=== PATIENT | male | born 1980 | race American Indian/Alaskan Native ===

== ENCOUNTER 2019-07-10 12:05 | Inpatient (IN) | payer OTHER ==
--- NOTE | 2019-07-10 12:36 | Emergency Department Report ---
Blank Doc - Documentation Documentation: 39-year-old male that was sent by upholstery mechanic for new onset of CHF w/ EF 10% and SOB, chest pain and bilateral leg swellings. This initial assessment/diagnostic orders/clinical plan/treatment(s) is/are subject to change based on patient's health status, clinical progression and re- assessment by fellow clinical providers in the ED. Further treatment and workup at subsequent clinical providers discretion. Patient/guardians urged not to elope from the ED as their condition may be serious if not clinically assessed and managed. Initial orders include: 1- Patient sent to MAIN ED for further evaluation and treatment 2- labs 3- EKG 4- CXR
--- NOTE | 2019-07-10 13:20 | XRay Report ---
CHEST 2 VIEWS INDICATION / CLINICAL INFORMATION: Chest pain for 3 weeks. COMPARISON: None available. FINDINGS: SUPPORT DEVICES: None. HEART / MEDIASTINUM: Moderate cardiomegaly. LUNGS / PLEURA: No significant pulmonary or pleural abnormality. No pneumothorax. ADDITIONAL FINDINGS: No significant additional findings. IMPRESSION: Moderate cardiomegaly. No other acute abnormality of the chest. Signer Name: Turner Dietrich MD Signed: 07/10/2019 1:15 PM Workstation Name: [id number]
[2019-07-10 13:52] LABS: Basophils # (Auto) 0.1 K/mm3 (0.0-0.1); Basophils % (Auto) 0.9 % (0.0-1.8); Eosinophils % (Auto) 0.1 % (0.0-4.3); Hematocrit 45.2 % (35.5-45.6); Hemoglobin 15.9 gm/dl (11.8-15.2); Lymphocytes # (Auto) 0.8 K/mm3 (1.2-5.4); Lymphocytes % (Auto) 11.2 % (13.4-35.0); Mean Corpuscular HGB Conc 35 % (32-34); Mean Corpuscular Volume 99 fl (84-94); Monocytes # (Auto) 0.8 K/mm3 (0.0-0.8); Monocytes % (Auto) 11.2 % (0.0-7.3); Platelet Count 219 K/mm3 (140-440); Red Blood Count 4.57 M/mm3 (3.65-5.03); Red Cell Distribution Width 13.9 % (13.2-15.2)
[2019-07-10 14:03] LABS: INR 1.37 (0.87-1.13)
[2019-07-10 14:04] LABS: Partial Thromboplastin Time 34.2 Sec. (24.2-36.6)
[2019-07-10 14:20] LABS: Alanine Aminotransferase 34 units/L (7-56); Albumin 3.2 g/dL (3.9-5); BUN/Creatinine Ratio 12; Blood Urea Nitrogen 17 mg/dL (9-20); Calcium 8.4 mg/dL (8.4-10.2); Hemolysis Index 5
--- NOTE | 2019-07-10 17:08 | Emergency Department Report ---
HPI - General Chief Complaint: Weakness Time Seen by Provider: 07/10/19 12:34 - HPI HPI: 39-year-old -[place] male presents to the emergency Department from the office of [facility] cardiology with complaint of new onset heart failure. The patient has been having a 1 week history of progressively worsening lower extremity swelling and exertional dyspnea. He went to see the primary care physician of his father, Dr. Painting, and was placed on some Lasix for a few days. He went into [facility] today and saw Dr. Pereyra. They did an echocardiogram that showed severe dilated biventricular dysfunction with an ejection fraction less than 10%. There is an office note here from Dr. Pereyra recommending admission for IV diuretics and inotropes. The patient denies any previous medical history but also does not follow up with a primary care physician regularly. He is a tobacco smoker but denies any illicit drug use. ED Past Medical Hx - Past Medical History Previous Medical History?: No - Surgical History Past Surgical History?: No - Social History Smoking Status: Current Every Day Smoker Substance Use Type: Alcohol ED Review of Systems ROS: Stated complaint: REF/BY [facility] Other details as noted in HPI Comment: All other systems reviewed and negative Constitutional: denies: chills, fever Eyes: denies: eye pain, vision change ENT: denies: ear pain, throat pain Respiratory: shortness of breath, SOB with exertion Cardiovascular: edema. denies: chest pain Gastrointestinal: denies: abdominal pain, vomiting Genitourinary: denies: dysuria, discharge Musculoskeletal: denies: back pain, arthralgia Skin: denies: rash, lesions Neurological: denies: headache, weakness Physical Exam - Physical Exam Vital Signs: Vital Signs 07/10/19 07/10/19 12:10 15:43 Temperature 97.9 F Pulse Rate 129 H 125 H Respiratory 16 18 Rate Blood Pressure 123/95 Blood Pressure 116/79 [Right] O2 Sat by Pulse 99 99 Oximetry Physical Exam: GENERAL: The patient is well-developed well-nourished. HEENT: Normocephalic. Atraumatic. Patient has moist mucous membranes. EYES: Extraocular motions are intact. NECK: Supple. Trachea is midline. CHEST/LUNGS: Clear to auscultation. There is no respiratory distress noted. HEART/CARDIOVASCULAR: Regular. There is mild tachycardia. There is no murmur. ABDOMEN: Abdomen is soft, nontender. Patient has normal bowel sounds. There is no abdominal distention. SKIN: 2-3+ pitting edema to the bilateral lower extremities. NEURO: The patient is awake, alert, and oriented. The patient is cooperative. The patient has no focal neurologic deficits. Normal speech. MUSCULOSKELETAL: There is no tenderness or deformity. There is no evidence of acute injury. ED Course Vital Signs 07/10/19 07/10/19 12:10 15:43 Temperature 97.9 F Pulse Rate 129 H 125 H Respiratory 16 18 Rate Blood Pressure 123/95 Blood Pressure 116/79 [Right] O2 Sat by Pulse 99 99 Oximetry ED Medical Decision Making - Lab Data Result diagrams: 07/10/19 13:05 07/10/19 13:05 - EKG Data -: EKG Interpreted by Me EKG shows normal: sinus rhythm, axis (left axis deviation), intervals (prolonged QT and QTC), QRS complexes (Q waves to the inferior and anterior leads), ST-T waves (there are some mild ST depressions to the lateral leads V5 and V6) Rate: tachycardia (126 bpm) - EKG Data When compared to previous EKG there are: previous EKG unavailable Interpretation: other (sinus tachycardia at 126 bpm, left axis deviation, Q waves to the anterior and inferior leads, mild ST depressions to the lateral leads V5 and V6, QT and QTC prolongation) - Radiology Data Radiology results: report reviewed, image reviewed interpreted by me: Chest x-ray does not show any pleural effusions, pneumonia, pneumothorax, focal consolidation, or any other acute process. Ventilation perfusion scan is low probability for pulmonary embolism - Medical Decision Making This patient was sent in by the chemistry technologist for new onset and decompensated heart failure with an ejection fraction less than 10% found on echocardiogram in the office. He has 2-3+ pitting edema bilateral lower extremities and some exertional dyspnea. Chest x-ray just shows some cardiomegaly. BNP greater than 2300. Negative troponins 2 this far. Elevated d-dimer so VQ scan was done that came back low probability for a pulmonary embolism. Given Lasix to start diuresis and patient will be admitted to the hospital. He was accepted by the hospitalist, Dr. Jennings. - Differential Diagnosis CHF, venous stasis, PE, pneumonia Critical Care Time: No Critical care attestation.: If time is entered above; I have spent that time in minutes in the direct care of this critically ill patient, excluding procedure time. ED Disposition Clinical Impression: New onset of congestive heart failure CHF (congestive heart failure) Qualifiers: Heart failure type: systolic Heart failure chronicity: acute Qualified Code(s): I50.21 - Acute systolic (congestive) heart failure Disposition: OP ADMIT IP TO THIS HOSP Is pt being admited?: Yes Condition: Fair Time of Disposition: 21:30
[2019-07-10] MEDS ORDERED: FUROSEMIDE 40 MG/4 ML INJ IV ONE (17:26)
[2019-07-10 19:18] LABS: Bilirubin,Urine NEG (Negative); Blood,Urine NEG (Negative); Color,Urine Straw (Yellow); Protein,Urine <15 mg/dL mg/dL (Negative); RBC,Urine < 1.0 /HPF (0.0-6.0)
--- NOTE | 2019-07-10 19:35 | History and Physical Report ---
History of Present Illness Chief complaint: My legs are swollen and it is hard for me to breathe History of present illness: 39-year-old male with nicotine dependence, alcohol dependence presents to ED for evaluation. Patient states that he has experienced lower extremity edema and shortness of breath over the past 1 week with progressively worsening symptoms over the same timeframe. Patient acknowledges orthopnea/PND, dyspnea on exertion, dyspnea at rest, decreased exercise tolerance, shortness of breath and subjective weight gain. Patient was seen and evaluated by his primary care physician and treated with diuretic therapy without significant improvement in symptoms. Patient was also seen by his outreach rep Dr. Pereyra on today and underwent an echocardiogram which showed an ejection fraction of less than 10%. Patient was instructed to seek medical care. Patient was transported to [facility] via private vehicle for further care and evaluation. Patient seen and evaluated in the emergency department. Lab and imaging studies reviewed. Patient found to have clinical symptoms as well as chest x-ray findings consistent with CHF decompensation. Patient admitted to telemetry for medical stabilization due to increased risk of cardiac decompensation. Cardiology team consulted in ED. Patient initiated on CHF decompensation protocol and treated with supplemental oxygen nebulizer therapy as well as diuretic therapy with mild improvement in symptoms. VQ scan is pending at time of admission. No prior admission for review. No medication listed at time of admission for reconciliation. Patient denies fever, chills, chest pain, palpitations, productive cough, bright red blood per rectum, skin rash, recent ill contacts, prolonged travel/immobility, unilateral leg swelling, calf pain, individual/family history of DVT/PE/bleeding/blood clotting disorders. Past History Past Medical History: other (See HPI) Past Surgical History: No surgical history, Other (Reviewed) Social history: smoking, alcohol abuse Family history: diabetes, hypertension Medications and Allergies Allergies Allergy/AdvReac Type Severity Reaction Status Date / Time No Known Allergies Allergy Unverified 07/10/19 12:10 Review of Systems Constitutional: weight gain, no weight loss, no fever Ears, nose, mouth and throat: no ear pain, no ear discharge, no tinnitis, no nose pain Cardiovascular: orthopnea, edema, shortness of breath, dyspnea on exertion, paroxysmal nocturnal dyspnea, leg edema, decreased exercise tolerance, no chest pain, no lightheadedness Respiratory: no cough, no cough with sputum, no excessive sputum Gastrointestinal: no nausea, no vomiting, no diarrhea, no constipation Genitourinary Male: no hematuria, no flank pain, no discharge, no urinary frequency, no urinary hesitancy Rectal: no pain, no incontinence, no bleeding Musculoskeletal: no neck stiffness, no neck pain, no shooting arm pain, no low back pain, no shooting leg pain Integumentary: no rash, no pruritis, no sores Neurological: no transient paralysis, no paralysis, no weakness, no parathesias, no numbness, no tingling Psychiatric: no anxiety, no memory loss, no sleep disturbances, no insomnia, no change in appetite, no suicidal ideation, no hallucinations Endocrine: no heat intolerance, no polyphagia, no polydipsia, no nocturia, no flushing Hematologic/Lymphatic: no easy bruising, no easy bleeding, no lymphedema Allergic/Immunologic: no allergic rhinitis, no wheezing, no anaphylaxis Exam - Constitutional Vitals: Temp Pulse Resp BP Pulse Ox 97.9 F 114 H 21 111/83 95 07/10/19 12:10 07/10/19 18:00 07/10/19 18:00 07/10/19 18:00 07/10/19 18:00 General appearance: Present: mild distress - EENT Eyes: Present: PERRL ENT: hearing intact, clear oral mucosa - Neck Neck: Present: supple, normal ROM, masses or JVD - Respiratory Respiratory effort: normal Respiratory: bilateral: diminished, rales - Cardiovascular Heart Sounds: Present: S1 & S2. Absent: rub, click - Extremities Extremities: pulses symmetrical Extremity abnormal: edema Peripheral Pulses: within normal limits - Abdominal General gastrointestinal: Present: soft, non-tender, non-distended, normal bowel sounds Male genitourinary: Present: normal - Integumentary Integumentary: Present: clear, warm, dry - Musculoskeletal Musculoskeletal: generalized weakness - Psychiatric Psychiatric: appropriate mood/affect, intact judgment & insight - Neurologic Neurologic: CNII-XII intact, moves all extremities Results - Labs CBC & Chem 7: 07/10/19 13:05 07/10/19 13:05 Labs: Abnormal lab results 07/10/19 07/10/19 07/10/19 Range/Units 13:05 13:05 13:05 Hgb 15.9 H (11.8-15.2) gm/dl MCV 99 H (84-94) fl MCH 35 H (28-32) pg MCHC 35 H (32-34) % Lymph % (Auto) 11.2 L (13.4-35.0) % Bourbon % (Auto) 11.2 H (0.0-7.3) % Lymph # 0.8 L (1.2-5.4) K/mm3 Seg Neutrophils % 76.6 H (40.0-70.0) % PT 17.1 H (12.2-14.9) Sec. INR 1.37 H (0.87-1.13) D-Dimer (0-234) ng/mlDDU Sodium 133 L (137-145) mmol/L Chloride 90.7 L (98-107) mmol/L Glucose 107 H (75-100) mg/dL Total Bilirubin 2.90 H (0.1-1.2) mg/dL AST 86 H (5-40) units/L NT-Pro-B Natriuret Pep 2312 H (0-450) pg/mL Total Protein 6.1 L (6.3-8.2) g/dL Albumin 3.2 L (3.9-5) g/dL Urine WBC (Auto) (0.0-6.0) /HPF 07/10/19 07/10/19 Range/Units 16:45 18:48 Hgb (11.8-15.2) gm/dl MCV (84-94) fl MCH (28-32) pg MCHC (32-34) % Lymph % (Auto) (13.4-35.0) % Bour[place] % (Auto) (0.0-7.3) % Lymph # (1.2-5.4) K/mm3 Seg Neutrophils % (40.0-70.0) % PT (12.2-14.9) Sec. INR (0.87-1.13) D-Dimer 1283.51 H (0-234) ng/mlDDU Sodium (137-145) mmol/L Chloride (98-107) mmol/L Glucose (75-100) mg/dL Total Bilirubin (0.1-1.2) mg/dL AST (5-40) units/L NT-Pro-B Natriuret Pep (0-450) pg/mL Total Protein (6.3-8.2) g/dL Albumin (3.9-5) g/dL Urine WBC (Auto) 8.0 H (0.0-6.0) /HPF Assessment and Plan - Patient Problems (1) CHF (congestive heart failure) Current Visit: Yes Status: Acute Qualifiers: Heart failure type: systolic Heart failure chronicity: acute Qualified Code(s): I50.21 - Acute systolic (congestive) heart failure Plan to address problem: CHF protocol: Admit to telemetry, strict I's/O, daily weight, monitor urine output every shift, IV Lasix for diuresis, supplemental oxygen, nebulizer therapy, chest x-ray, BNP, thyroid panel, magnesium level, afterload reduction, cardiology consulted in ED. (2) Nicotine dependence Current Visit: Yes Status: Acute Qualifiers: Nicotine product type: cigarettes Substance use status: in withdrawal Qualified Code(s): F17.213 - Nicotine dependence, cigarettes, with withdrawal Plan to address problem: Smoking cessation counseling, supportive care, +15 minutes. (3) Alcohol dependence Current Visit: Yes Status: Acute Qualifiers: Complication of substance-induced condition: uncomplicated Plan to address problem: Thiamine, folic acid, multivitamin p.o. daily, supportive care, CIWA protocol. (4) Hyponatremia syndrome Current Visit: Yes Status: Acute Plan to address problem: Supportive care, monitor urine output every shift, BMP, repeat BMP in a.m. (5) DVT prophylaxis Current Visit: Yes Status: Acute Plan to address problem: SCD to bilateral lower extremities while in bed, prophylactic heparin.
[2019-07-10] MEDS ORDERED: ONDANSETRON 4 MG/2 ML INJ IV PRN (19:36)
[2019-07-10] MEDS ORDERED: ALBUTEROL 2.5 MG/3 ML NEBU IH PRN (19:36)
[2019-07-10] MEDS ORDERED: THIAMINE 100 MG TAB PO ONE (19:53)
[2019-07-10] MEDS ORDERED: LORazepam 2 MG/ML VIAL IV PRN (19:53)
[2019-07-10] MEDS ORDERED: MULTIVITAMINS ,THERAPEUTIC TAB PO ONE ×2 (19:53→20:26)
--- NOTE | 2019-07-10 19:54 | Nuclear Medicine Report ---
NM lung scan perf/vent INDICATION / CLINICAL INFORMATION: SOB, elevated dimer. TRACER: Xenon 133 gas 12.1 mCi inhalation and technetium 99m MAA 5.1 mCi IV injection. COMPARISON: Chest x-ray earlier the same day. FINDINGS: Nuclear medicine, ventilation and perfusion lung imaging were performed. Both are relatively homogene ous. Negative for suspicious ventilation or perfusion defect. IMPRESSION: Low probability for pulmonary embolus. Signer Name: Sid Smith MD Signed: 07/10/2019 7:49 PM Workstation Name: [id number]
[2019-07-10 20:18] LABS: Free T4 (Free Thyroxine) 1.36 ng/dL (0.76-1.46)
[2019-07-10] MEDS ORDERED: FOLIC ACID 1 MG TAB ONE (20:26)
[2019-07-10] MEDS: FOLIC ACID 1 MG TAB PO SCH (20:29)
[2019-07-10] MEDS: HEPARIN 5,000 UNIT/1 ML VIAL SUB-Q SCH (23:21)
[2019-07-11] MEDS: FUROSEMIDE 40 MG/4 ML INJ IV SCH ×2 (06:09→18:24)
[2019-07-11 06:45] LABS: BUN/Creatinine Ratio 19; Blood Urea Nitrogen 21 mg/dL (9-20); Calcium 8.2 mg/dL (8.4-10.2); Hemolysis Index 10
--- NOTE | 2019-07-11 09:45 | Consultation ---
History of Present Illness Consult date: 07/11/19 Consult reason: congestive heart failure History of present illness: This is a 39-year old male who was referred to our office with exertional sh ortness of breath and lower extremity edema ongoing for several weeks. Patient has a history of alcohol dependence. There is no prior cardiac history. Further evaluation with an echocardiogram showed severe TR and at least moderatae MR and severe dilated cardiomyopathy with and ejection fraction of 10%. The duration of this cardiomyopathy is uncertain. Patient was referred to the emergency departm ent for admission of CHF exacerbation. Past History Past Medical History: other (See HPI) Past Surgical History: No surgical history, Other (Reviewed) Social history: smoking, alcohol abuse Family history: diabetes, hypertension Medications and Allergies Allergies Allergy/AdvReac Type Severity Reaction Status Date / Time No Known Allergies Allergy Unverified 07/10/19 12:10 Active Meds: Active Medications Acetaminophen (Tylenol) 650 mg PO Q4H PRN PRN Reason: Pain MILD(1-3)/Fever >100.5/FLANNERY Albuterol (Proventil) 2.5 mg IH Q4HRT PRN PRN Reason: Shortness Of Breath Folic Acid (Folvite) 1 mg PO QDAY [facility] Last Admin: 07/10/19 20:29 Dose: 1 mg Documented by: Furosemide (Lasix) 40 mg IV BID@0600,1800 [facility] Last Admin: 07/11/19 06:09 Dose: 40 mg Documented by: Heparin Sodium (Porcine) (Heparin) 5,000 unit SUB-Q Q12HR [facility] Last Admin: 07/10/19 23:21 Dose: 5,000 unit Documented by: Lorazepam (Ativan) 2 mg IV Q1HR PRN PRN Reason: CIWA-Ar 8-15 Ondansetron HCl (Zofran) 4 mg IV Q8H PRN PRN Reason: Nausea And Vomiting Sodium Chloride (Sodium Chloride Flush Syringe 10 Ml) 10 ml IV BID [facility] Last Admin: 07/10/19 23:21 Dose: 10 ml Documented by: Sodium Chloride (Sodium Chloride Flush Syringe 10 Ml) 10 ml IV PRN PRN PRN Reason: LINE FLUSH Physical Examination Vital Signs Temp Pulse Resp BP Pulse Ox 97.9 F 129 H 16 123/95 99 07/10/19 12:10 07/10/19 12:10 07/10/19 12:10 07/10/19 12:10 07/10/19 12:10 General appearance: no acute distress HEENT: Positive: PERRL Neck: Positive: trachea midline Cardiac: Positive: Tachycardia Lungs: Positive: Decreased Breath Sounds Neuro: Positive: Grossly Intact Extremities: Present: edema Results 07/10/19 13:05 07/11/19 05:52 Cardiac Enzymes 07/10/19 Range/Units 13:05 AST 86 H (5-40) units/L Coagulation 07/10/19 Range/Units 13:05 PT 17.1 H (12.2-14.9) Sec. INR 1.37 H (0.87-1.13) APTT 34.2 (24.2-36.6) Sec. CBC 07/10/19 Range/Units 13:05 WBC 7.3 (4.5-11.0) K/mm3 RBC 4.57 (3.65-5.03) M/mm3 Hgb 15.9 H (11.8-15.2) gm/dl Hct 45.2 (35.5-45.6) % Plt Count 219 (140-440) K/mm3 Lymph # 0.8 L (1.2-5.4) K/mm3 George # 0.8 (0.0-0.8) K/mm3 Eos # 0.0 (0.0-0.4) K/mm3 Baso # 0.1 (0.0-0.1) K/mm3 Comprehensive Metabolic Panel 07/10/19 07/11/19 Range/Units 13:05 05:52 Sodium 133 L 134 L (137-145) mmol/L Potassium 4.5 3.8 (3.6-5.0) mmol/L Chloride 90.7 L 92.8 L (98-107) mmol/L Carbon Dioxide 22 26 (22-30) mmol/L BUN 17 21 H (9-20) mg/dL Creatinine 1.4 1.1 (0.8-1.5) mg/dL Glucose 107 H 103 H (75-100) mg/dL Calcium 8.4 8.2 L (8.4-10.2) mg/dL AST 86 H (5-40) units/L ALT 34 (7-56) units/L Alkaline Phosphatase 92 (35-129) units/L Total Protein 6.1 L (6.3-8.2) g/dL Albumin 3.2 L (3.9-5) g/dL Assessment and Plan Acute systolic heart failure EF 10% by outpatient echocardiogram. low probability for PE via VQ scan. Alcohol dependence Recommendations: Daily weight. Strict I's & O's. Sodium and fluid restriction. Advised to refrain from alcohol. Continue intravenous diuretics. In addition, we will initiate a trial of intravenous milrinone for 48-72 hours.
[2019-07-11] MEDS: FOLIC ACID 1 MG TAB PO SCH (10:26)
[2019-07-11] MEDS: HEPARIN 5,000 UNIT/1 ML VIAL SUB-Q SCH ×2 (10:26→22:57)
[2019-07-11] MEDS ORDERED: carvediloL 6.25 MG TAB PO SCH (12:00)
[2019-07-11] MEDS: MILRINONE-D5W 20 MG/100 ML 20 MG/100 ML BAG IV SCH (15:20)
--- NOTE | 2019-07-11 16:41 | Progress Note ---
Assessment and Plan Assessment and plan: Patient is a 39-year-old man with a history of with nicotine dependence and alcohol alcohol who presented to [facility] ED with lower extremity edema and shortness of breath. Patient was seen at his manager icu Dr. Pereyra's office and underwent an echocardiogram which showed an ejection fraction of less than 10%. Patient was instructed to seek medical care. (1) CHF (congestive heart failure) Current Visit: Yes Status: Acute Qualifiers: Heart failure type: systolic Heart failure chronicity: acute Qualified Code(s): I50.21 - Acute systolic (congestive) heart failure Plan to address problem: CHF protocol: Admit to telemetry, strict I's/O, daily weight, monitor urine output every shift, IV Lasix for diuresis, supplemental oxygen, nebulizer therapy, chest x-ray, BNP, thyroid panel, magnesium level, afterload reduction, cardiology consulted in ED. (2) Nicotine dependence Current Visit: Yes Status: Acute Qualifiers: Nicotine product type: cigarettes Substance use status: in withdrawal Qualified Code(s): F17.213 - Nicotine dependence, cigarettes, with withdrawal Plan to address problem: Smoking cessation counseling, supportive care, +15 minutes. (3) Alcohol dependence Current Visit: Yes Status: Acute Qualifiers: Complication of substance-induced condition: uncomplicated Plan to address problem: Thiamine, folic acid, multivitamin p.o. daily, supportive care, CIWA protocol. (4) Hyponatremia syndrome Current Visit: Yes Status: Acute Plan to address problem: Supportive care, monitor urine output every shift, BMP, repeat BMP in a.m. (5) DVT prophylaxis Current Visit: Yes Status: Acute Plan to address problem: SCD to bilateral lower extremities while in bed, prophylactic heparin. Disposition: continue inpatient care, Cardiology to start Milrone drip. Expect patient to experience ETOH WD, History Interval history: Patient was seen and examined. Follow-up on current diagnosis of CHF. Overnight uneventful as no events directly reported to me. Patient denies any chest pain, shortness breath, nausea/vomiting or severe headaches. Imaging, nursing note, chart, labs and old chart reviewed. Discussed with patient. Hospitalist Physical - Physical exam Narrative exam: Gen: WDWN, NAD, Awake, Alert, Orientated x 3 HEENT: NCAT, EOMI, PERRL, OP Clear Neck: supple, no adenopathy, no thyromegaly, + JVD CVS/Heart: RRR, normal S1S2, pulses present bilaterally Chest/Lungs: diminished bs bilateral, Symmetrical chest expansion, good air entry bilaterally GI/Abdomen: soft, NTND, good bowel sounds, no guarding or rebound /Bladder: no suprapubic tenderness, no CVA or paraspinal tenderness Extermity/Skin: 3+ pitting bilateral leg edema MSK: FROM x 4 Neuro: CN 2-12 grossly intact, no new focal deficits Psych: calm - Constitutional Vitals: Temp Pulse Resp BP Pulse Ox 122.0 F H 106 H 20 102/61 97 07/11/19 15:52 07/11/19 15:52 07/11/19 15:52 07/11/19 15:52 07/11/19 15:52 General appearance: Present: no acute distress Results - Labs CBC & Chem 7: 07/10/19 13:05 07/11/19 05:52 Labs: Laboratory Last Values WBC 7.3 K/mm3 (4.5-11.0) 07/10/19 13:05 RBC 4.57 M/mm3 (3.65-5.03) 07/10/19 13:05 Hgb 15.9 gm/dl (11.8-15.2) H 07/10/19 13:05 Hct 45.2 % (35.5-45.6) 07/10/19 13:05 MCV 99 fl (84-94) H 07/10/19 13:05 MCH 35 pg (28-32) H 07/10/19 13:05 MCHC 35 % (32-34) H 07/10/19 13:05 RDW 13.9 % (13.2-15.2) 07/10/19 13:05 Plt Count 219 K/mm3 (140-440) 07/10/19 13:05 Lymph % (Auto) 11.2 % (13.4-35.0) L 07/10/19 13:05 [place] % (Auto) 11.2 % (0.0-7.3) H 07/10/19 13:05 Eos % (Auto) 0.1 % (0.0-4.3) 07/10/19 13:05 Baso % (Auto) 0.9 % (0.0-1.8) 07/10/19 13:05 Lymph # 0.8 K/mm3 (1.2-5.4) L 07/10/19 13:05 [place] # 0.8 K/mm3 (0.0-0.8) 07/10/19 13:05 Eos # 0.0 K/mm3 (0.0-0.4) 07/10/19 13:05 Baso # 0.1 K/mm3 (0.0-0.1) 07/10/19 13:05 Seg Neutrophils % 76.6 % (40.0-70.0) H 07/10/19 13:05 Seg Neutrophils # 5.6 K/mm3 (1.8-7.7) 07/10/19 13:05 PT 17.1 Sec. (12.2-14.9) H 07/10/19 13:05 INR 1.37 (0.87-1.13) H 07/10/19 13:05 APTT 34.2 Sec. (24.2-36.6) 07/10/19 13:05 D-Dimer 1283.51 ng/mlDDU (0-234) H 07/10/19 16:45 Sodium 134 mmol/L (137-145) L 07/11/19 05:52 Potassium 3.8 mmol/L (3.6-5.0) 07/11/19 05:52 Chloride 92.8 mmol/L (98-107) L 07/11/19 05:52 Carbon Dioxide 26 mmol/L (22-30) 07/11/19 05:52 Anion Gap 19 mmol/L 07/11/19 05:52 BUN 21 mg/dL (9-20) H 07/11/19 05:52 Creatinine 1.1 mg/dL (0.8-1.5) 07/11/19 05:52 Estimated GFR > 60 ml/min 07/11/19 05:52 BUN/Creatinine Ratio 19 % 07/11/19 05:52 Glucose 103 mg/dL (75-100) H 07/11/19 05:52 Calcium 8.2 mg/dL (8.4-10.2) L 07/11/19 05:52 Magnesium 1.60 mg/dL (1.7-2.3) L 07/10/19 15:52 Total Bilirubin 2.90 mg/dL (0.1-1.2) H 07/10/19 13:05 AST 86 units/L (5-40) H 07/10/19 13:05 ALT 34 units/L (7-56) 07/10/19 13:05 Alkaline Phosphatase 92 units/L (35-129) 07/10/19 13:05 Troponin T < 0.010 ng/mL (0.00-0.029) 07/10/19 15:52 NT-Pro-B Natriuret Pep 2312 pg/mL (0-450) H 07/10/19 13:05 Total Protein 6.1 g/dL (6.3-8.2) L 07/10/19 13:05 Albumin 3.2 g/dL (3.9-5) L 07/10/19 13:05 Albumin/Globulin Ratio 1.1 % 07/10/19 13:05 TSH 2.350 mlU/mL (0.270-4.200) 07/10/19 15:52 Free T4 1.36 ng/dL (0.76-1.46) 07/10/19 15:52 Urine Color Straw (Yellow) 07/10/19 18:48 Urine Turbidity Clear (Clear) 07/10/19 18:48 Urine pH 7.0 (5.0-7.0) 07/10/19 18:48 Ur Specific [place] 1.003 (1.003-1.030) 07/10/19 18:48 Urine Protein <15 mg/dl mg/dL (Negative) 07/10/19 18:48 Urine Glucose (UA) Neg mg/dL (Negative) 07/10/19 18:48 Urine Ketones Neg mg/dL (Negative) 07/10/19 18:48 Urine Blood Neg (Negative) 07/10/19 18:48 Urine Nitrite Neg (Negative) 07/10/19 18:48 Urine Bilirubin Neg (Negative) 07/10/19 18:48 Urine Urobilinogen 4.0 mg/dL (<2.0) 07/10/19 18:48 Ur Leukocyte Esterase Neg (Negative) 07/10/19 18:48 Urine WBC (Auto) 8.0 /HPF (0.0-6.0) H 07/10/19 18:48 Urine RBC (Auto) < 1.0 /HPF (0.0-6.0) 07/10/19 18:48 Active Medications - Current Medications Current Medications: Generic Name Dose Route Start Last Admin Trade Name Freq PRN Reason Stop Dose Admin Acetaminophen 650 mg 07/10/19 19:36 Tylenol PO Q4H PRN Pain MILD(1-3)/Fever >100.5/FLANNERY Albuterol 2.5 mg 07/10/19 19:36 Proventil IH Q4HRT PRN Shortness Of Breath Folic Acid 1 mg 07/10/19 19:53 07/11/19 10:26 Folvite PO 1 mg QDAY AAYUSH Administration Furosemide 40 mg 07/11/19 06:00 07/11/19 06:09 Lasix IV 40 mg BID@0600,1800 AAYUSH Administration Heparin Sodium (Porcine) 5,000 unit 07/10/19 22:00 07/11/19 10:26 Heparin SUB-Q 5,000 unit Q12HR AAYUSH Administration Milrinone Lactate/Dextrose 20 mg in 100 mls @ 6.255 mls/hr 07/11/19 14:00 07/11/19 15:20 Milrinone-D5w 20 Mg/100 Ml IV 07/14/19 13:59 0.25 mcg/kg/min TITR AAYUSH 6.255 mls/hr Administration 0.25 MCG/KG/MIN Lorazepam 2 mg 07/10/19 19:53 Ativan IV Q1HR PRN CIWA-Ar 8-15 Ondansetron HCl 4 mg 07/10/19 19:36 Zofran IV Q8H PRN Nausea And Vomiting Sodium Chloride 10 ml 07/10/19 22:00 07/10/19 23:21 Sodium Chloride Flush Syringe 10 Ml IV 10 ml BID AAYUSH Administration Sodium Chloride 10 ml 07/10/19 19:36 Sodium Chloride Flush Syringe 10 Ml IV PRN PRN LINE FLUSH Spironolactone 25 mg 07/12/19 10:00 Aldactone PO QDAY AAYUSH
[2019-07-12] MEDS: MILRINONE-D5W 20 MG/100 ML 20 MG/100 ML BAG IV SCH ×2 (03:15→22:39)
[2019-07-12] MEDS: FUROSEMIDE 40 MG/4 ML INJ IV SCH ×3 (05:41→18:21)
[2019-07-12] MEDS ORDERED: SPIRONOLACTONE 25 MG TAB PO SCH (10:00)
[2019-07-12] MEDS ORDERED: LISINOPRIL 5 MG TAB PO SCH (10:00)
[2019-07-12] MEDS: FOLIC ACID 1 MG TAB PO SCH (10:13)
[2019-07-12] MEDS: HEPARIN 5,000 UNIT/1 ML VIAL SUB-Q SCH ×2 (10:13→22:40)
[2019-07-12] MEDS: SPIRONOLACTONE 25 MG TAB PO SCH (10:13)
--- NOTE | 2019-07-12 12:09 | Progress Note ---
Assessment and Plan Acute systolic heart failure EF 10% by outpatient echocardiogram. low probability for PE via VQ scan. Alcohol dependence Recommendations: Daily weight. Strict I's & O's. Sodium and fluid restriction. Advised to refrain from alcohol. Continue aggressive therapy with diuretics and IV milrinone. We will initiate beta blockers once heart failure is compensated. Lifevest placement before discharge. Subjective Date of service: 07/12/19 Interval history: Patient reports he is diuresing well. Still with mild shortness of breath on exertion. Objective Vital Signs Temp Pulse Resp BP BP Pulse Ox 07/12/19 07:48 97.3 F L 113 H 18 111/73 99 07/12/19 04:04 97.9 F 114 H 16 105/55 95 07/11/19 23:43 98.9 F 113 H 16 91/61 96 07/11/19 20:17 112 H 07/11/19 20:00 118 H 92 07/11/19 19:49 97.8 F 16 98/71 07/11/19 19:00 103 H 07/11/19 18:25 101 H 105/68 07/11/19 15:52 122.0 F H 106 H 20 102/61 97 07/11/19 13:29 97.5 F L 125 H 20 108/76 96 07/11/19 12:39 95 - Physical Examination General: No Apparent Distress HEENT: Positive: PERRL Neck: Positive: trachea midline Cardiac: Positive: Tachycardia Lungs: Positive: Decreased Breath Sounds Neuro: Positive: Grossly Intact Extremities: Present: edema
[2019-07-13] MEDS: FUROSEMIDE 40 MG/4 ML INJ IV SCH ×2 (07:13→18:22)
--- NOTE | 2019-07-13 08:37 | Progress Note ---
Assessment and Plan Assessment and plan: Patient is a 39-year-old man with a history of with nicotine dependence and alcohol alcohol who presented to [facility] ED with lower extremity edema and shortness of breath. Patient was seen at his aircraft life support fitter Dr. Pereyra's office and underwent an echocardiogram which showed an ejection fraction of less than 10%. Patient was instructed to seek medical care. (1) CHF (congestive heart failure) Current Visit: Yes Status: Acute Qualifiers: Heart failure type: systolic Heart failure chronicity: acute Qualified Code(s): I50.21 - Acute systolic (congestive) heart failure Plan to address problem: CHF protocol: Admit to telemetry, strict I's/O, daily weight, monitor urine output every shift, IV Lasix for diuresis, supplemental oxygen, nebulizer therapy, chest x-ray, BNP, thyroid panel, magnesium level, afterload reduction, cardiology consulted in ED. (2) Nicotine dependence Current Visit: Yes Status: Acute Qualifiers: Nicotine product type: cigarettes Substance use status: in withdrawal Qualified Code(s): F17.213 - Nicotine dependence, cigarettes, with withdrawal Plan to address problem: Smoking cessation counseling, supportive care, +15 minutes. (3) Alcohol dependence Current Visit: Yes Status: Acute Qualifiers: Complication of substance-induced condition: uncomplicated Plan to address problem: Thiamine, folic acid, multivitamin p.o. daily, supportive care, CIWA protocol. (4) Hyponatremia syndrome Current Visit: Yes Status: Acute Plan to address problem: Supportive care, monitor urine output every shift, BMP, repeat BMP in a.m. (5) DVT prophylaxis Current Visit: Yes Status: Acute Plan to address problem: SCD to bilateral lower extremities while in bed, prophylactic heparin. Disposition: continue inpatient care, Cardiology to started Milrinone drip. Expect patient to experience ETOH WD, Day 2 of IV Milrinone drip D/W mother at bedside continue intravenous diuretics and intravenous milrinone. When heart failure is compensated, we will introduce low-dose beta to therapy. Lifevest monitor has been ordered for placement prior to discharge. History Interval history: Patient was seen and examined. Follow-up on current diagnosis of CHF. Overnight uneventful as no events directly reported to me. Patient denies any chest pain, shortness breath, nausea/vomiting or severe headaches. Imaging, nursing note, chart, labs and old chart reviewed. Discussed with patient. Hospitalist Physical - Physical exam Narrative exam: Gen: WDWN, NAD, Awake, Alert, Orientated x 3 HEENT: NCAT, EOMI, PERRL, OP Clear Neck: supple, no adenopathy, no thyromegaly, + JVD CVS/Heart: RRR, normal S1S2, pulses present bilaterally Chest/Lungs: diminished bs bilateral, Symmetrical chest expansion, good air entry bilaterally GI/Abdomen: soft, NTND, good bowel sounds, no guarding or rebound /Bladder: no suprapubic tenderness, no CVA or paraspinal tenderness Extermity/Skin: 3+ pitting bilateral leg edema MSK: FROM x 4 Neuro: CN 2-12 grossly intact, no new focal deficits Psych: calm - Constitutional Vitals: Temp Pulse Resp BP Pulse Ox 98.1 F 115 H 18 106/73 96 07/13/19 04:28 07/13/19 04:28 07/13/19 04:28 07/13/19 04:28 07/13/19 04:28 General appearance: Present: no acute distress Results - Labs CBC & Chem 7: 07/10/19 13:05 07/11/19 05:52 Labs: Laboratory Last Values WBC 7.3 K/mm3 (4.5-11.0) 07/10/19 13:05 RBC 4.57 M/mm3 (3.65-5.03) 07/10/19 13:05 Hgb 15.9 gm/dl (11.8-15.2) H 07/10/19 13:05 Hct 45.2 % (35.5-45.6) 07/10/19 13:05 MCV 99 fl (84-94) H 07/10/19 13:05 MCH 35 pg (28-32) H 07/10/19 13:05 MCHC 35 % (32-34) H 07/10/19 13:05 RDW 13.9 % (13.2-15.2) 07/10/19 13:05 Plt Count 219 K/mm3 (140-440) 07/10/19 13:05 Lymph % (Auto) 11.2 % (13.4-35.0) L 07/10/19 13:05 [place] % (Auto) 11.2 % (0.0-7.3) H 07/10/19 13:05 Eos % (Auto) 0.1 % (0.0-4.3) 07/10/19 13:05 Baso % (Auto) 0.9 % (0.0-1.8) 07/10/19 13:05 Lymph # 0.8 K/mm3 (1.2-5.4) L 07/10/19 13:05 [place] # 0.8 K/mm3 (0.0-0.8) 07/10/19 13:05 Eos # 0.0 K/mm3 (0.0-0.4) 07/10/19 13:05 Baso # 0.1 K/mm3 (0.0-0.1) 07/10/19 13:05 Seg Neutrophils % 76.6 % (40.0-70.0) H 07/10/19 13:05 Seg Neutrophils # 5.6 K/mm3 (1.8-7.7) 07/10/19 13:05 PT 17.1 Sec. (12.2-14.9) H 07/10/19 13:05 INR 1.37 (0.87-1.13) H 07/10/19 13:05 APTT 34.2 Sec. (24.2-36.6) 07/10/19 13:05 D-Dimer 1283.51 ng/mlDDU (0-234) H 07/10/19 16:45 Sodium 134 mmol/L (137-145) L 07/11/19 05:52 Potassium 3.8 mmol/L (3.6-5.0) 07/11/19 05:52 Chloride 92.8 mmol/L (98-107) L 07/11/19 05:52 Carbon Dioxide 26 mmol/L (22-30) 07/11/19 05:52 Anion Gap 19 mmol/L 07/11/19 05:52 BUN 21 mg/dL (9-20) H 07/11/19 05:52 Creatinine 1.1 mg/dL (0.8-1.5) 07/11/19 05:52 Estimated GFR > 60 ml/min 07/11/19 05:52 BUN/Creatinine Ratio 19 % 07/11/19 05:52 Glucose 103 mg/dL (75-100) H 07/11/19 05:52 Calcium 8.2 mg/dL (8.4-10.2) L 07/11/19 05:52 Magnesium 1.60 mg/dL (1.7-2.3) L 07/10/19 15:52 Total Bilirubin 2.90 mg/dL (0.1-1.2) H 07/10/19 13:05 AST 86 units/L (5-40) H 07/10/19 13:05 ALT 34 units/L (7-56) 07/10/19 13:05 Alkaline Phosphatase 92 units/L (35-129) 07/10/19 13:05 Troponin T < 0.010 ng/mL (0.00-0.029) 07/10/19 15:52 NT-Pro-B Natriuret Pep 2312 pg/mL (0-450) H 07/10/19 13:05 Total Protein 6.1 g/dL (6.3-8.2) L 07/10/19 13:05 Albumin 3.2 g/dL (3.9-5) L 07/10/19 13:05 Albumin/Globulin Ratio 1.1 % 07/10/19 13:05 TSH 2.350 mlU/mL (0.270-4.200) 07/10/19 15:52 Free T4 1.36 ng/dL (0.76-1.46) 07/10/19 15:52 Urine Color Straw (Yellow) 07/10/19 18:48 Urine Turbidity Clear (Clear) 07/10/19 18:48 Urine pH 7.0 (5.0-7.0) 07/10/19 18:48 Ur Specific [place] 1.003 (1.003-1.030) 07/10/19 18:48 Urine Protein <15 mg/dl mg/dL (Negative) 07/10/19 18:48 Urine Glucose (UA) Neg mg/dL (Negative) 07/10/19 18:48 Urine Ketones Neg mg/dL (Negative) 07/10/19 18:48 Urine Blood Neg (Negative) 07/10/19 18:48 Urine Nitrite Neg (Negative) 07/10/19 18:48 Urine Bilirubin Neg (Negative) 07/10/19 18:48 Urine Urobilinogen 4.0 mg/dL (<2.0) 07/10/19 18:48 Ur Leukocyte Esterase Neg (Negative) 07/10/19 18:48 Urine WBC (Auto) 8.0 /HPF (0.0-6.0) H 07/10/19 18:48 Urine RBC (Auto) < 1.0 /HPF (0.0-6.0) 07/10/19 18:48 Active Medications - Current Medications Current Medications: Generic Name Dose Route Start Last Admin Trade Name Freq PRN Reason Stop Dose Admin Acetaminophen 650 mg 07/10/19 19:36 Tylenol PO Q4H PRN Pain MILD(1-3)/Fever >100.5/FLANNERY Albuterol 2.5 mg 07/10/19 19:36 Proventil IH Q4HRT PRN Shortness Of Breath Folic Acid 1 mg 07/10/19 19:53 07/12/19 10:13 Folvite PO 1 mg QDAY AAYUSH Administration Furosemide 40 mg 07/11/19 06:00 07/13/19 07:13 Lasix IV 40 mg BID@0600,1800 AAYUSH Administration Heparin Sodium (Porcine) 5,000 unit 07/10/19 22:00 07/12/19 22:40 Heparin SUB-Q 5,000 unit Q12HR AAYUSH Administration Milrinone Lactate/Dextrose 20 mg in 100 mls @ 6.255 mls/hr 07/11/19 14:00 07/12/19 22:39 Milrinone-D5w 20 Mg/100 Ml IV 07/14/19 13:59 0.25 mcg/kg/min TITR AAYUSH 6.255 mls/hr Administration 0.25 MCG/KG/MIN Lorazepam 2 mg 07/10/19 19:53 Ativan IV Q1HR PRN CIWA-Ar 8-15 Ondansetron HCl 4 mg 07/10/19 19:36 Zofran IV Q8H PRN Nausea And Vomiting Sodium Chloride 10 ml 07/10/19 22:00 07/13/19 07:16 Sodium Chloride Flush Syringe 10 Ml IV Not Given BID AAYUSH Sodium Chloride 10 ml 07/10/19 19:36 Sodium Chloride Flush Syringe 10 Ml IV PRN PRN LINE FLUSH Spironolactone 25 mg 07/12/19 10:00 07/12/19 10:13 Aldactone PO 25 mg QDAY AAYUSH Administration
--- NOTE | 2019-07-13 08:39 | Progress Note ---
Assessment and Plan Assessment and plan: Patient is a 39-year-old man with a history of with nicotine dependence and alcohol alcohol who presented to [facility] ED with lower extremity edema and shortness of breath. Patient was seen at his supervisor fertilizer Dr. Pereyra's office and underwent an echocardiogram which showed an ejection fraction of 10-15%%. Patient was instructed to seek medical care. 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 Gonzales, treat with iv diuretics Nicotine dependence: Smoking cessation counseling, Alcohol dependence: Thiamine, folic acid, multivitamin p.o. daily, supportive care, CIWA protocol. Last drink 2 days prior to arrival Hyponatremia syndrome: Supportive care, monitor urine output every shift, BMP, repeat BMP in a.m. DVT prophylaxis: SCD to bilateral lower extremities while in bed, prophylactic heparin. Disposition: continue inpatient care, Cardiology to started Milrinone drip. Expect patient to experience ETOH WD, Day 3 of IV Milrinone drip, Lifevest placement prior to discharge. D/W mother at bedside History Interval history: Patient was seen and examined. Follow-up on current diagnosis of CHF. Overnight uneventful as no events directly reported to me. Patient denies any chest pain, shortness breath, nausea/vomiting or severe headaches. Imaging, nursing note, chart, labs and old chart reviewed. Discussed with patient. Hospitalist Physical - Physical exam Narrative exam: Gen: WDWN, NAD, Awake, Alert, Orientated x 3 HEENT: NCAT, EOMI, PERRL, OP Clear Neck: supple, no adenopathy, no thyromegaly, + JVD CVS/Heart: RRR, normal S1S2, pulses present bilaterally Chest/Lungs: diminished bs bilateral, Symmetrical chest expansion, good air entry bilaterally GI/Abdomen: soft, NTND, good bowel sounds, no guarding or rebound /Bladder: no suprapubic tenderness, no CVA or paraspinal tenderness Extermity/Skin: 3+ pitting bilateral leg edema MSK: FROM x 4 Neuro: CN 2-12 grossly intact, no new focal deficits Psych: calm - Constitutional Vitals: Temp Pulse Resp BP Pulse Ox 98.1 F 115 H 18 106/73 96 07/13/19 04:28 07/13/19 04:28 07/13/19 04:28 07/13/19 04:28 07/13/19 04:28 General appearance: Present: no acute distress Results - Labs CBC & Chem 7: 07/10/19 13:05 07/11/19 05:52 Labs: Laboratory Last Values WBC 7.3 K/mm3 (4.5-11.0) 07/10/19 13:05 RBC 4.57 M/mm3 (3.65-5.03) 07/10/19 13:05 Hgb 15.9 gm/dl (11.8-15.2) H 07/10/19 13:05 Hct 45.2 % (35.5-45.6) 07/10/19 13:05 MCV 99 fl (84-94) H 07/10/19 13:05 MCH 35 pg (28-32) H 07/10/19 13:05 MCHC 35 % (32-34) H 07/10/19 13:05 RDW 13.9 % (13.2-15.2) 07/10/19 13:05 Plt Count 219 K/mm3 (140-440) 07/10/19 13:05 Lymph % (Auto) 11.2 % (13.4-35.0) L 07/10/19 13:05 [place] % (Auto) 11.2 % (0.0-7.3) H 07/10/19 13:05 Eos % (Auto) 0.1 % (0.0-4.3) 07/10/19 13:05 Baso % (Auto) 0.9 % (0.0-1.8) 07/10/19 13:05 Lymph # 0.8 K/mm3 (1.2-5.4) L 07/10/19 13:05 [place] # 0.8 K/mm3 (0.0-0.8) 07/10/19 13:05 Eos # 0.0 K/mm3 (0.0-0.4) 07/10/19 13:05 Baso # 0.1 K/mm3 (0.0-0.1) 07/10/19 13:05 Seg Neutrophils % 76.6 % (40.0-70.0) H 07/10/19 13:05 Seg Neutrophils # 5.6 K/mm3 (1.8-7.7) 07/10/19 13:05 PT 17.1 Sec. (12.2-14.9) H 07/10/19 13:05 INR 1.37 (0.87-1.13) H 07/10/19 13:05 APTT 34.2 Sec. (24.2-36.6) 07/10/19 13:05 D-Dimer 1283.51 ng/mlDDU (0-234) H 07/10/19 16:45 Sodium 134 mmol/L (137-145) L 07/11/19 05:52 Potassium 3.8 mmol/L (3.6-5.0) 07/11/19 05:52 Chloride 92.8 mmol/L (98-107) L 07/11/19 05:52 Carbon Dioxide 26 mmol/L (22-30) 07/11/19 05:52 Anion Gap 19 mmol/L 07/11/19 05:52 BUN 21 mg/dL (9-20) H 07/11/19 05:52 Creatinine 1.1 mg/dL (0.8-1.5) 07/11/19 05:52 Estimated GFR > 60 ml/min 07/11/19 05:52 BUN/Creatinine Ratio 19 % 07/11/19 05:52 Glucose 103 mg/dL (75-100) H 07/11/19 05:52 Calcium 8.2 mg/dL (8.4-10.2) L 07/11/19 05:52 Magnesium 1.60 mg/dL (1.7-2.3) L 07/10/19 15:52 Total Bilirubin 2.90 mg/dL (0.1-1.2) H 07/10/19 13:05 AST 86 units/L (5-40) H 07/10/19 13:05 ALT 34 units/L (7-56) 07/10/19 13:05 Alkaline Phosphatase 92 units/L (35-129) 07/10/19 13:05 Troponin T < 0.010 ng/mL (0.00-0.029) 07/10/19 15:52 NT-Pro-B Natriuret Pep 2312 pg/mL (0-450) H 07/10/19 13:05 Total Protein 6.1 g/dL (6.3-8.2) L 07/10/19 13:05 Albumin 3.2 g/dL (3.9-5) L 07/10/19 13:05 Albumin/Globulin Ratio 1.1 % 07/10/19 13:05 TSH 2.350 mlU/mL (0.270-4.200) 07/10/19 15:52 Free T4 1.36 ng/dL (0.76-1.46) 07/10/19 15:52 Urine Color Straw (Yellow) 07/10/19 18:48 Urine Turbidity Clear (Clear) 07/10/19 18:48 Urine pH 7.0 (5.0-7.0) 07/10/19 18:48 Ur Specific [place] 1.003 (1.003-1.030) 07/10/19 18:48 Urine Protein <15 mg/dl mg/dL (Negative) 07/10/19 18:48 Urine Glucose (UA) Neg mg/dL (Negative) 07/10/19 18:48 Urine Ketones Neg mg/dL (Negative) 07/10/19 18:48 Urine Blood Neg (Negative) 07/10/19 18:48 Urine Nitrite Neg (Negative) 07/10/19 18:48 Urine Bilirubin Neg (Negative) 07/10/19 18:48 Urine Urobilinogen 4.0 mg/dL (<2.0) 07/10/19 18:48 Ur Leukocyte Esterase Neg (Negative) 07/10/19 18:48 Urine WBC (Auto) 8.0 /HPF (0.0-6.0) H 07/10/19 18:48 Urine RBC (Auto) < 1.0 /HPF (0.0-6.0) 07/10/19 18:48 Active Medications - Current Medications Current Medications: Generic Name Dose Route Start Last Admin Trade Name Freq PRN Reason Stop Dose Admin Acetaminophen 650 mg 07/10/19 19:36 Tylenol PO Q4H PRN Pain MILD(1-3)/Fever >100.5/FLANNERY Albuterol 2.5 mg 07/10/19 19:36 Proventil IH Q4HRT PRN Shortness Of Breath Folic Acid 1 mg 07/10/19 19:53 07/12/19 10:13 Folvite PO 1 mg QDAY AAYUSH Administration Furosemide 40 mg 07/11/19 06:00 07/13/19 07:13 Lasix IV 40 mg BID@0600,1800 AAYUSH Administration Heparin Sodium (Porcine) 5,000 unit 07/10/19 22:00 07/12/19 22:40 Heparin SUB-Q 5,000 unit Q12HR AAYUSH Administration Milrinone Lactate/Dextrose 20 mg in 100 mls @ 6.255 mls/hr 07/11/19 14:00 07/12/19 22:39 Milrinone-D5w 20 Mg/100 Ml IV 07/14/19 13:59 0.25 mcg/kg/min TITR AAYUSH 6.255 mls/hr Administration 0.25 MCG/KG/MIN Lorazepam 2 mg 07/10/19 19:53 Ativan IV Q1HR PRN CIWA-Ar 8-15 Ondansetron HCl 4 mg 07/10/19 19:36 Zofran IV Q8H PRN Nausea And Vomiting Sodium Chloride 10 ml 07/10/19 22:00 07/13/19 07:16 Sodium Chloride Flush Syringe 10 Ml IV Not Given BID AAYUSH Sodium Chloride 10 ml 07/10/19 19:36 Sodium Chloride Flush Syringe 10 Ml IV PRN PRN LINE FLUSH Spironolactone 25 mg 07/12/19 10:00 07/12/19 10:13 Aldactone PO 25 mg QDAY AAYUSH Administration
[2019-07-13] MEDS: SPIRONOLACTONE 25 MG TAB PO SCH (10:36)
[2019-07-13] MEDS: FOLIC ACID 1 MG TAB PO SCH (10:36)
[2019-07-13] MEDS: HEPARIN 5,000 UNIT/1 ML VIAL SUB-Q SCH ×2 (10:38→23:26)
--- NOTE | 2019-07-13 11:52 | Progress Note ---
Assessment and Plan Acute systolic heart failure EF 10% by outpatient echocardiogram. low probability for PE via VQ scan. Lifevest placement Alcohol dependence Recommendations: Daily weight. Strict I's & O's. Sodium and fluid restriction. Advised to refrain from alcohol. Continue aggressive therapy with diuretics and IV milrinone. We will initiate beta blockers once heart failure is compensated. Ischemic evaluation with a stress thallium test will be done as an outpatient. Subjective Date of service: 07/13/19 Interval history: Patient reports he is diuresing well. Lower extremity is slowly improving. The Lifevest has been delivered. Objective Vital Signs Temp Pulse Resp BP Pulse Ox 07/13/19 10:36 116 H 07/13/19 08:06 97.8 F 115 H 18 110/81 97 07/13/19 04:28 98.1 F 115 H 18 106/73 96 07/13/19 03:00 125 H 07/12/19 23:29 98.1 F 18 07/12/19 23:28 114 H 104/74 98 07/12/19 19:44 98.2 F 124 H 18 103/73 99 07/12/19 19:00 119 H 07/12/19 12:27 130 H 118/88 95 - Physical Examination General: No Apparent Distress HEENT: Positive: PERRL Neck: Positive: trachea midline Cardiac: Positive: Tachycardia Lungs: Positive: Decreased Breath Sounds Neuro: Positive: Grossly Intact Extremities: Present: edema
[2019-07-13] MEDS: MILRINONE-D5W 20 MG/100 ML 20 MG/100 ML BAG IV SCH ×2 (15:37→16:31)
[2019-07-14] MEDS: FUROSEMIDE 40 MG/4 ML INJ IV SCH ×2 (06:41→17:51)
[2019-07-14] MEDS: MILRINONE-D5W 20 MG/100 ML 20 MG/100 ML BAG IV SCH ×2 (06:44→21:37)
[2019-07-14] MEDS: HEPARIN 5,000 UNIT/1 ML VIAL SUB-Q SCH ×2 (09:38→21:32)
[2019-07-14] MEDS: FOLIC ACID 1 MG TAB PO SCH (09:38)
[2019-07-14] MEDS: SPIRONOLACTONE 25 MG TAB PO SCH (09:43)
--- NOTE | 2019-07-14 11:27 | Progress Note ---
Assessment and Plan Acute systolic heart failure EF 10% by outpatient echocardiogram. low probability for PE via VQ scan. Lifevest placement Alcohol dependence Recommendations: Daily weight. Strict I's & O's. Sodium and fluid restriction. Advised to refrain from alcohol. Continue aggressive therapy with diuretics and IV milrinone. We will initiate beta blockers once heart failure is compensated. Ischemic evaluation with a stress thallium test will be done as an outpatient. Subjective Date of service: 07/14/19 Interval history: Patient reports he is diuresing well. Lower extremity is slowly improving, still with 2+ edema. Objective Vital Signs Temp Pulse Pulse Resp BP Pulse Ox 07/14/19 09:43 100 H 102/70 07/14/19 08:23 98.6 F 116 H 20 99/72 98 07/14/19 03:00 125 H 07/13/19 23:51 98.1 F 121 H 18 99/65 96 07/13/19 19:49 98.3 F 127 H 18 109/76 94 07/13/19 19:00 116 H 07/13/19 16:59 97.1 F L 123 H 18 121/89 96 07/13/19 15:00 114 H 16 98 07/13/19 12:25 121 H 18 109/80 99 - Physical Examination General: No Apparent Distress HEENT: Positive: PERRL Neck: Positive: trachea midline Cardiac: Positive: Tachycardia Lungs: Positive: Decreased Breath Sounds Neuro: Positive: Grossly Intact Extremities: Present: edema
[2019-07-14] MEDS ORDERED: FLU VACC QUAD 2019-20 (3 YR UP)/PF 60 MCG/0.5 ML SYRINGE IM ONE (12:00)
[2019-07-14] MEDS ORDERED: PNEUMOCOCCAL 23 Valent 0.5 ML VIAL IM ONE (12:00)
--- NOTE | 2019-07-14 18:27 | Progress Note ---
Assessment and Plan Assessment and plan: Patient is a 39-year-old man with a history of with nicotine dependence and alcohol alcohol who presented to [facility] ED with lower extremity edema and shortness of breath. Patient was seen at his warehouse selector Dr. Pereyra's office and underwent an echocardiogram which showed an ejection fraction of 10-15%%. Patient was instructed to seek medical care. 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 Gonzales, treat with iv diuretics Nicotine dependence: Smoking cessation counseling, Alcohol dependence: Thiamine, folic acid, multivitamin p.o. daily, supportive care, CIWA protocol. Last drink 2 days prior to arrival Hyponatremia syndrome: Supportive care, monitor urine output every shift, BMP, repeat BMP in a.m. DVT prophylaxis: SCD to bilateral lower extremities while in bed, prophylactic heparin. Disposition: continue inpatient care because patient still volume overload, Cardiology to started Milrinone drip. Expect patient to experience ETOH WD, Day 4 of IV Milrinone drip, Lifevest placement prior to discharge. History Interval history: Patient was seen and examined. Follow-up on current diagnosis of CHF. Overnight uneventful as no events directly reported to me. Patient denies any chest pain, shortness breath, nausea/vomiting or severe headaches. Imaging, nursing note, chart, labs and old chart reviewed. Discussed with patient. Hospitalist Physical - Physical exam Narrative exam: Gen: WDWN, NAD, Awake, Alert, Orientated x 3 HEENT: NCAT, EOMI, PERRL, OP Clear Neck: supple, no adenopathy, no thyromegaly, + JVD CVS/Heart: RRR, normal S1S2, pulses present bilaterally Chest/Lungs: diminished bs bilateral, Symmetrical chest expansion, good air entry bilaterally GI/Abdomen: soft, NTND, good bowel sounds, no guarding or rebound /Bladder: no suprapubic tenderness, no CVA or paraspinal tenderness Extermity/Skin: 3+ pitting bilateral leg edema MSK: FROM x 4 Neuro: CN 2-12 grossly intact, no new focal deficits Psych: calm - Constitutional Vitals: Temp Pulse Resp BP Pulse Ox 98.0 F 111 H 18 102/73 98 07/14/19 16:49 07/14/19 16:49 07/14/19 16:49 07/14/19 16:49 07/14/19 16:49 General appearance: Present: no acute distress Results - Labs CBC & Chem 7: 07/10/19 13:05 07/11/19 05:52 Labs: Laboratory Last Values WBC 7.3 K/mm3 (4.5-11.0) 07/10/19 13:05 RBC 4.57 M/mm3 (3.65-5.03) 07/10/19 13:05 Hgb 15.9 gm/dl (11.8-15.2) H 07/10/19 13:05 Hct 45.2 % (35.5-45.6) 07/10/19 13:05 MCV 99 fl (84-94) H 07/10/19 13:05 MCH 35 pg (28-32) H 07/10/19 13:05 MCHC 35 % (32-34) H 07/10/19 13:05 RDW 13.9 % (13.2-15.2) 07/10/19 13:05 Plt Count 219 K/mm3 (140-440) 07/10/19 13:05 Lymph % (Auto) 11.2 % (13.4-35.0) L 07/10/19 13:05 [place] % (Auto) 11.2 % (0.0-7.3) H 07/10/19 13:05 Eos % (Auto) 0.1 % (0.0-4.3) 07/10/19 13:05 Baso % (Auto) 0.9 % (0.0-1.8) 07/10/19 13:05 Lymph # 0.8 K/mm3 (1.2-5.4) L 07/10/19 13:05 [place] # 0.8 K/mm3 (0.0-0.8) 07/10/19 13:05 Eos # 0.0 K/mm3 (0.0-0.4) 07/10/19 13:05 Baso # 0.1 K/mm3 (0.0-0.1) 07/10/19 13:05 Seg Neutrophils % 76.6 % (40.0-70.0) H 07/10/19 13:05 Seg Neutrophils # 5.6 K/mm3 (1.8-7.7) 07/10/19 13:05 PT 17.1 Sec. (12.2-14.9) H 07/10/19 13:05 INR 1.37 (0.87-1.13) H 07/10/19 13:05 APTT 34.2 Sec. (24.2-36.6) 07/10/19 13:05 D-Dimer 1283.51 ng/mlDDU (0-234) H 07/10/19 16:45 Sodium 134 mmol/L (137-145) L 07/11/19 05:52 Potassium 3.8 mmol/L (3.6-5.0) 07/11/19 05:52 Chloride 92.8 mmol/L (98-107) L 07/11/19 05:52 Carbon Dioxide 26 mmol/L (22-30) 07/11/19 05:52 Anion Gap 19 mmol/L 07/11/19 05:52 BUN 21 mg/dL (9-20) H 07/11/19 05:52 Creatinine 1.1 mg/dL (0.8-1.5) 07/11/19 05:52 Estimated GFR > 60 ml/min 07/11/19 05:52 BUN/Creatinine Ratio 19 % 07/11/19 05:52 Glucose 103 mg/dL (75-100) H 07/11/19 05:52 Calcium 8.2 mg/dL (8.4-10.2) L 07/11/19 05:52 Magnesium 1.60 mg/dL (1.7-2.3) L 07/10/19 15:52 Total Bilirubin 2.90 mg/dL (0.1-1.2) H 07/10/19 13:05 AST 86 units/L (5-40) H 07/10/19 13:05 ALT 34 units/L (7-56) 07/10/19 13:05 Alkaline Phosphatase 92 units/L (35-129) 07/10/19 13:05 Troponin T < 0.010 ng/mL (0.00-0.029) 07/10/19 15:52 NT-Pro-B Natriuret Pep 2312 pg/mL (0-450) H 07/10/19 13:05 Total Protein 6.1 g/dL (6.3-8.2) L 07/10/19 13:05 Albumin 3.2 g/dL (3.9-5) L 07/10/19 13:05 Albumin/Globulin Ratio 1.1 % 07/10/19 13:05 TSH 2.350 mlU/mL (0.270-4.200) 07/10/19 15:52 Free T4 1.36 ng/dL (0.76-1.46) 07/10/19 15:52 Urine Color Straw (Yellow) 07/10/19 18:48 Urine Turbidity Clear (Clear) 07/10/19 18:48 Urine pH 7.0 (5.0-7.0) 07/10/19 18:48 Ur Specific [place] 1.003 (1.003-1.030) 07/10/19 18:48 Urine Protein <15 mg/dl mg/dL (Negative) 07/10/19 18:48 Urine Glucose (UA) Neg mg/dL (Negative) 07/10/19 18:48 Urine Ketones Neg mg/dL (Negative) 07/10/19 18:48 Urine Blood Neg (Negative) 07/10/19 18:48 Urine Nitrite Neg (Negative) 07/10/19 18:48 Urine Bilirubin Neg (Negative) 07/10/19 18:48 Urine Urobilinogen 4.0 mg/dL (<2.0) 07/10/19 18:48 Ur Leukocyte Esterase Neg (Negative) 07/10/19 18:48 Urine WBC (Auto) 8.0 /HPF (0.0-6.0) H 07/10/19 18:48 Urine RBC (Auto) < 1.0 /HPF (0.0-6.0) 07/10/19 18:48 Active Medications - Current Medications Current Medications: Generic Name Dose Route Start Last Admin Trade Name Freq PRN Reason Stop Dose Admin Acetaminophen 650 mg 07/10/19 19:36 Tylenol PO Q4H PRN Pain MILD(1-3)/Fever >100.5/FLANNERY Albuterol 2.5 mg 07/10/19 19:36 Proventil IH Q4HRT PRN Shortness Of Breath Folic Acid 1 mg 07/10/19 19:53 07/14/19 09:38 Folvite PO 1 mg QDAY AAYUSH Administration Furosemide 40 mg 07/11/19 06:00 07/14/19 17:51 Lasix IV 40 mg BID@0600,1800 AAYUSH Administration Heparin Sodium (Porcine) 5,000 unit 07/10/19 22:00 07/14/19 09:38 Heparin SUB-Q 5,000 unit Q12HR AAYUSH Administration Milrinone Lactate/Dextrose 20 mg in 100 mls @ 6.255 mls/hr 07/14/19 14:00 Milrinone-D5w 20 Mg/100 Ml IV TITR AAYUSH 0.25 MCG/KG/MIN Lorazepam 2 mg 07/10/19 19:53 Ativan IV Q1HR PRN CIWA-Ar 8-15 Ondansetron HCl 4 mg 07/10/19 19:36 Zofran IV Q8H PRN Nausea And Vomiting Sodium Chloride 10 ml 07/10/19 22:00 07/14/19 09:39 Sodium Chloride Flush Syringe 10 Ml IV 10 ml BID AAYUSH Administration Sodium Chloride 10 ml 07/10/19 19:36 Sodium Chloride Flush Syringe 10 Ml IV PRN PRN LINE FLUSH Spironolactone 25 mg 07/12/19 10:00 07/14/19 09:43 Aldactone PO 25 mg QDAY AAYUSH Administration
[2019-07-15] MEDS: FUROSEMIDE 40 MG/4 ML INJ IV SCH ×2 (06:17→17:10)
[2019-07-15] MEDS: SPIRONOLACTONE 25 MG TAB PO SCH (09:20)
[2019-07-15] MEDS: FOLIC ACID 1 MG TAB PO SCH (09:21)
[2019-07-15] MEDS: HEPARIN 5,000 UNIT/1 ML VIAL SUB-Q SCH ×2 (09:21→21:57)
--- NOTE | 2019-07-15 10:42 | Progress Note ---
Assessment and Plan 1. Chronic combined systolic and diastolic heart failure. 2. Dilated cardiomyopathy 3. Alcoholism Plan. Patient is stable and states pedal edema is gradually improving on IV milrinone will continue this and continue daily weights continued diuresis and. Patient will need a life- vest prior to discharge. Subjective Date of service: 07/15/19 Interval history: No cardiac symptoms Objective Vital Signs Temp Pulse Pulse Resp Resp BP BP 07/15/19 09:20 121 H 105/72 07/15/19 08:51 99.4 F 121 H 18 105/72 07/15/19 07:55 18 07/15/19 07:15 122 H 07/15/19 05:48 98.3 F 127 H 20 112/79 07/14/19 23:52 98.9 F 118 H 20 108/64 07/14/19 20:00 118 H 07/14/19 19:49 98.2 F 124 H 20 100/75 07/14/19 16:49 98.0 F 111 H 18 102/73 07/14/19 15:00 100 H 20 07/14/19 14:00 20 07/14/19 11:46 98.6 F 123 H 18 91/64 07/14/19 11:00 122 H Pulse Ox 07/15/19 09:20 07/15/19 08:51 96 07/15/19 07:55 98 07/15/19 07:15 07/15/19 05:48 95 07/14/19 23:52 98 07/14/19 20:00 07/14/19 19:49 96 07/14/19 16:49 98 07/14/19 15:00 07/14/19 14:00 07/14/19 11:46 98 07/14/19 11:00 - Physical Examination General: No Apparent Distress HEENT: Positive: PERRL, Normocephaly, Mucus Membranes Moist Neck: Positive: trachea midline. Negative: JVD/HJR Cardiac: Positive: Regular Rate, S1/S2, S3, S4, PMI, Dilated, Laterally Displaced Lungs: Positive: clear to auscultation, No Wheeze, Rales, Rhonchi Neuro: Positive: Grossly Intact Abdomen: Positive: Unremarkable, Active Bowel Sounds Extremities: Present: edema, +1 Edema
[2019-07-15] MEDS: MILRINONE-D5W 20 MG/100 ML 20 MG/100 ML BAG IV SCH (16:23)
--- NOTE | 2019-07-15 18:04 | Progress Note ---
Assessment and Plan Assessment and plan: Patient is a 39-year-old man with a history of with nicotine dependence and alcohol alcohol who presented to [facility] ED with lower extremity edema and shortness of breath. Patient was seen at his fiber technician Dr. Pereyra's office and underwent an echocardiogram which showed an ejection fraction of 10-15%%. Patient was instructed to seek medical care. 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 Gonzales, treat with iv diuretics Nicotine dependence: Smoking cessation counseling, Alcohol dependence: Thiamine, folic acid, multivitamin p.o. daily, supportive care, CIWA protocol. Last drink 2 days prior to arrival Hyponatremia syndrome: Supportive care, monitor urine output every shift, BMP, repeat BMP in a.m. DVT prophylaxis: SCD to bilateral lower extremities while in bed, prophylactic heparin. Disposition: continue inpatient care because patient still volume overload, Cardiology to started Milrinone drip. Expect patient to experience ETOH WD, Day 4 of IV Milrinone drip, Lifevest placement prior to discharge. History Interval history: Patient was seen and examined. Follow-up on current diagnosis of CHF. Overnight uneventful as no events directly reported to me. Patient denies any chest pain, shortness breath, nausea/vomiting or severe headaches. Imaging, nursing note, chart, labs and old chart reviewed. Discussed with patient. Hospitalist Physical - Physical exam Narrative exam: Gen: WDWN, NAD, Awake, Alert, Orientated x 3 HEENT: NCAT, EOMI, PERRL, OP Clear Neck: supple, no adenopathy, no thyromegaly, + JVD CVS/Heart: RRR, normal S1S2, pulses present bilaterally Chest/Lungs: diminished bs bilateral, Symmetrical chest expansion, good air entry bilaterally GI/Abdomen: soft, NTND, good bowel sounds, no guarding or rebound /Bladder: no suprapubic tenderness, no CVA or paraspinal tenderness Extermity/Skin: 3+ pitting bilateral leg edema MSK: FROM x 4 Neuro: CN 2-12 grossly intact, no new focal deficits Psych: calm - Constitutional Vitals: Temp Pulse Resp BP Pulse Ox 97.7 F 124 H 18 103/71 98 07/15/19 17:12 07/15/19 17:12 07/15/19 17:12 07/15/19 17:12 07/15/19 11:36 General appearance: Present: no acute distress Results - Labs CBC & Chem 7: 07/10/19 13:05 07/11/19 05:52 Labs: Laboratory Last Values WBC 7.3 K/mm3 (4.5-11.0) 07/10/19 13:05 RBC 4.57 M/mm3 (3.65-5.03) 07/10/19 13:05 Hgb 15.9 gm/dl (11.8-15.2) H 07/10/19 13:05 Hct 45.2 % (35.5-45.6) 07/10/19 13:05 MCV 99 fl (84-94) H 07/10/19 13:05 MCH 35 pg (28-32) H 07/10/19 13:05 MCHC 35 % (32-34) H 07/10/19 13:05 RDW 13.9 % (13.2-15.2) 07/10/19 13:05 Plt Count 219 K/mm3 (140-440) 07/10/19 13:05 Lymph % (Auto) 11.2 % (13.4-35.0) L 07/10/19 13:05 [place] % (Auto) 11.2 % (0.0-7.3) H 07/10/19 13:05 Eos % (Auto) 0.1 % (0.0-4.3) 07/10/19 13:05 Baso % (Auto) 0.9 % (0.0-1.8) 07/10/19 13:05 Lymph # 0.8 K/mm3 (1.2-5.4) L 07/10/19 13:05 [place] # 0.8 K/mm3 (0.0-0.8) 07/10/19 13:05 Eos # 0.0 K/mm3 (0.0-0.4) 07/10/19 13:05 Baso # 0.1 K/mm3 (0.0-0.1) 07/10/19 13:05 Seg Neutrophils % 76.6 % (40.0-70.0) H 07/10/19 13:05 Seg Neutrophils # 5.6 K/mm3 (1.8-7.7) 07/10/19 13:05 PT 17.1 Sec. (12.2-14.9) H 07/10/19 13:05 INR 1.37 (0.87-1.13) H 07/10/19 13:05 APTT 34.2 Sec. (24.2-36.6) 07/10/19 13:05 D-Dimer 1283.51 ng/mlDDU (0-234) H 07/10/19 16:45 Sodium 134 mmol/L (137-145) L 07/11/19 05:52 Potassium 3.8 mmol/L (3.6-5.0) 07/11/19 05:52 Chloride 92.8 mmol/L (98-107) L 07/11/19 05:52 Carbon Dioxide 26 mmol/L (22-30) 07/11/19 05:52 Anion Gap 19 mmol/L 07/11/19 05:52 BUN 21 mg/dL (9-20) H 07/11/19 05:52 Creatinine 1.1 mg/dL (0.8-1.5) 07/11/19 05:52 Estimated GFR > 60 ml/min 07/11/19 05:52 BUN/Creatinine Ratio 19 % 07/11/19 05:52 Glucose 103 mg/dL (75-100) H 07/11/19 05:52 Calcium 8.2 mg/dL (8.4-10.2) L 07/11/19 05:52 Magnesium 1.60 mg/dL (1.7-2.3) L 07/10/19 15:52 Total Bilirubin 2.90 mg/dL (0.1-1.2) H 07/10/19 13:05 AST 86 units/L (5-40) H 07/10/19 13:05 ALT 34 units/L (7-56) 07/10/19 13:05 Alkaline Phosphatase 92 units/L (35-129) 07/10/19 13:05 Troponin T < 0.010 ng/mL (0.00-0.029) 07/10/19 15:52 NT-Pro-B Natriuret Pep 2312 pg/mL (0-450) H 07/10/19 13:05 Total Protein 6.1 g/dL (6.3-8.2) L 07/10/19 13:05 Albumin 3.2 g/dL (3.9-5) L 07/10/19 13:05 Albumin/Globulin Ratio 1.1 % 07/10/19 13:05 TSH 2.350 mlU/mL (0.270-4.200) 07/10/19 15:52 Free T4 1.36 ng/dL (0.76-1.46) 07/10/19 15:52 Urine Color Straw (Yellow) 07/10/19 18:48 Urine Turbidity Clear (Clear) 07/10/19 18:48 Urine pH 7.0 (5.0-7.0) 07/10/19 18:48 Ur Specific [place] 1.003 (1.003-1.030) 07/10/19 18:48 Urine Protein <15 mg/dl mg/dL (Negative) 07/10/19 18:48 Urine Glucose (UA) Neg mg/dL (Negative) 07/10/19 18:48 Urine Ketones Neg mg/dL (Negative) 07/10/19 18:48 Urine Blood Neg (Negative) 07/10/19 18:48 Urine Nitrite Neg (Negative) 07/10/19 18:48 Urine Bilirubin Neg (Negative) 07/10/19 18:48 Urine Urobilinogen 4.0 mg/dL (<2.0) 07/10/19 18:48 Ur Leukocyte Esterase Neg (Negative) 07/10/19 18:48 Urine WBC (Auto) 8.0 /HPF (0.0-6.0) H 07/10/19 18:48 Urine RBC (Auto) < 1.0 /HPF (0.0-6.0) 07/10/19 18:48 Active Medications - Current Medications Current Medications: Generic Name Dose Route Start Last Admin Trade Name Freq PRN Reason Stop Dose Admin Acetaminophen 650 mg 07/10/19 19:36 Tylenol PO Q4H PRN Pain MILD(1-3)/Fever >100.5/FLANNERY Albuterol 2.5 mg 07/10/19 19:36 Proventil IH Q4HRT PRN Shortness Of Breath Folic Acid 1 mg 07/10/19 19:53 07/15/19 09:21 Folvite PO 1 mg QDAY AAYUSH Administration Furosemide 40 mg 07/11/19 06:00 07/15/19 17:10 Lasix IV 40 mg BID@0600,1800 AAYUSH Administration Heparin Sodium (Porcine) 5,000 unit 07/10/19 22:00 07/15/19 09:21 Heparin SUB-Q 5,000 unit Q12HR AAYUSH Administration Milrinone Lactate/Dextrose 20 mg in 100 mls @ 6.255 mls/hr 07/14/19 14:00 07/15/19 16:23 Milrinone-D5w 20 Mg/100 Ml IV 0.25 mcg/kg/min TITR AAYUSH 6.255 mls/hr Administration 0.25 MCG/KG/MIN Lorazepam 2 mg 07/10/19 19:53 Ativan IV Q1HR PRN CIWA-Ar 8-15 Ondansetron HCl 4 mg 07/10/19 19:36 Zofran IV Q8H PRN Nausea And Vomiting Sodium Chloride 10 ml 07/10/19 22:00 07/15/19 09:21 Sodium Chloride Flush Syringe 10 Ml IV 10 ml BID AAYUSH Administration Sodium Chloride 10 ml 07/10/19 19:36 Sodium Chloride Flush Syringe 10 Ml IV PRN PRN LINE FLUSH Spironolactone 25 mg 07/12/19 10:00 07/15/19 09:20 Aldactone PO 25 mg QDAY AAYUSH Administration
[2019-07-16] MEDS: FUROSEMIDE 40 MG/4 ML INJ IV SCH ×2 (05:44→17:22)
[2019-07-16] MEDS: MILRINONE-D5W 20 MG/100 ML 20 MG/100 ML BAG IV SCH (05:44)
[2019-07-16] MEDS: FOLIC ACID 1 MG TAB PO SCH (10:20)
[2019-07-16] MEDS: HEPARIN 5,000 UNIT/1 ML VIAL SUB-Q SCH (10:21)
[2019-07-16] MEDS: SPIRONOLACTONE 25 MG TAB PO SCH (10:23)
--- NOTE | 2019-07-16 10:36 | Progress Note ---
Assessment and Plan 1. Chronic combined systolic and diastolic heart failure. 2. Dilated cardiomyopathy 3. Alcoholism Plan. Patient is stable and states pedal edema is gradually improving on IV milrinone will continue this and continue daily weights continued diuresis and. Patient will need a life- vest prior to discharge.OK to discharge home in the am Subjective Date of service: 07/16/19 Interval history: No cardiac symptoms Objective Vital Signs Temp Pulse Resp BP BP Pulse Ox 07/16/19 04:18 98.9 F 135 H 16 117/81 98 07/16/19 00:29 98.8 F 134 H 16 110/74 97 07/15/19 20:33 99.6 F 128 H 16 108/78 99 07/15/19 17:12 97.7 F 124 H 18 103/71 07/15/19 11:36 98.2 F 119 H 16 100/72 98 - Physical Examination General: No Apparent Distress HEENT: Positive: PERRL, Normocephaly, Mucus Membranes Moist Neck: Positive: trachea midline. Negative: JVD/HJR Cardiac: Positive: Regular Rate, S1/S2, S4, PMI, Dilated, Laterally Displaced Lungs: Positive: clear to auscultation, No Wheeze, Rales, Rhonchi Neuro: Positive: Grossly Intact Abdomen: Positive: Unremarkable, Active Bowel Sounds Extremities: Present: edema, +1 Edema
[2019-07-16] MEDS: ACETAMINOPHEN 325 MG TAB PO PRN (12:50)
--- NOTE | 2019-07-16 14:46 | Progress Note ---
Assessment and Plan Assessment and plan: Patient is a 39-year-old man with a history of with nicotine dependence and alcohol alcohol who presented to [facility] ED with lower extremity edema and shortness of breath. Patient was seen at his drier belt conveyor Dr. Pereyra's office and underwent an echocardiogram which showed an ejection fraction of 10-15%%. Patient was instructed to seek medical care. 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 Gonzales, treat with iv diuretics Nicotine dependence: Smoking cessation counseling, Alcohol dependence: Thiamine, folic acid, multivitamin p.o. daily, supportive care, CIWA protocol. Last drink 2 days prior to arrival Hyponatremia syndrome: Supportive care, monitor urine output every shift, BMP, repeat BMP in a.m. DVT prophylaxis: SCD to bilateral lower extremities while in bed, prophylactic heparin. Disposition: continue inpatient care because patient still volume overload, Cardiology to started Milrinone drip. Day 5 of IV Milrinone drip, Lifevest placement prior to discharge. History Interval history: Patient was seen and examined. Follow-up on current diagnosis of CHF. Overnight uneventful as no events directly reported to me. Patient denies any chest pain, shortness breath, nausea/vomiting or severe headaches. Imaging, nursing note, chart, labs and old chart reviewed. Discussed with patient. Hospitalist Physical - Physical exam Narrative exam: Gen: WDWN, NAD, Awake, Alert, Orientated x 3 HEENT: NCAT, EOMI, PERRL, OP Clear Neck: supple, no adenopathy, no thyromegaly, + JVD CVS/Heart: RRR, normal S1S2, pulses present bilaterally Chest/Lungs: diminished bs bilateral, Symmetrical chest expansion, good air entry bilaterally GI/Abdomen: soft, NTND, good bowel sounds, no guarding or rebound /Bladder: no suprapubic tenderness, no CVA or paraspinal tenderness Extermity/Skin: 3+ pitting bilateral leg edema MSK: FROM x 4 Neuro: CN 2-12 grossly intact, no new focal deficits Psych: calm - Constitutional Vitals: Temp Pulse Resp BP Pulse Ox 98.9 F 135 H 16 117/81 98 07/16/19 04:18 07/16/19 04:18 07/16/19 04:18 07/16/19 04:18 07/16/19 04:18 General appearance: Present: no acute distress Results - Labs CBC & Chem 7: 07/10/19 13:05 07/11/19 05:52 Labs: Laboratory Last Values WBC 7.3 K/mm3 (4.5-11.0) 07/10/19 13:05 RBC 4.57 M/mm3 (3.65-5.03) 07/10/19 13:05 Hgb 15.9 gm/dl (11.8-15.2) H 07/10/19 13:05 Hct 45.2 % (35.5-45.6) 07/10/19 13:05 MCV 99 fl (84-94) H 07/10/19 13:05 MCH 35 pg (28-32) H 07/10/19 13:05 MCHC 35 % (32-34) H 07/10/19 13:05 RDW 13.9 % (13.2-15.2) 07/10/19 13:05 Plt Count 219 K/mm3 (140-440) 07/10/19 13:05 Lymph % (Auto) 11.2 % (13.4-35.0) L 07/10/19 13:05 [place] % (Auto) 11.2 % (0.0-7.3) H 07/10/19 13:05 Eos % (Auto) 0.1 % (0.0-4.3) 07/10/19 13:05 Baso % (Auto) 0.9 % (0.0-1.8) 07/10/19 13:05 Lymph # 0.8 K/mm3 (1.2-5.4) L 07/10/19 13:05 [place] # 0.8 K/mm3 (0.0-0.8) 07/10/19 13:05 Eos # 0.0 K/mm3 (0.0-0.4) 07/10/19 13:05 Baso # 0.1 K/mm3 (0.0-0.1) 07/10/19 13:05 Seg Neutrophils % 76.6 % (40.0-70.0) H 07/10/19 13:05 Seg Neutrophils # 5.6 K/mm3 (1.8-7.7) 07/10/19 13:05 PT 17.1 Sec. (12.2-14.9) H 07/10/19 13:05 INR 1.37 (0.87-1.13) H 07/10/19 13:05 APTT 34.2 Sec. (24.2-36.6) 07/10/19 13:05 D-Dimer 1283.51 ng/mlDDU (0-234) H 07/10/19 16:45 Sodium 134 mmol/L (137-145) L 07/11/19 05:52 Potassium 3.8 mmol/L (3.6-5.0) 07/11/19 05:52 Chloride 92.8 mmol/L (98-107) L 07/11/19 05:52 Carbon Dioxide 26 mmol/L (22-30) 07/11/19 05:52 Anion Gap 19 mmol/L 07/11/19 05:52 BUN 21 mg/dL (9-20) H 07/11/19 05:52 Creatinine 1.1 mg/dL (0.8-1.5) 07/11/19 05:52 Estimated GFR > 60 ml/min 07/11/19 05:52 BUN/Creatinine Ratio 19 % 07/11/19 05:52 Glucose 103 mg/dL (75-100) H 07/11/19 05:52 Calcium 8.2 mg/dL (8.4-10.2) L 07/11/19 05:52 Magnesium 1.60 mg/dL (1.7-2.3) L 07/10/19 15:52 Total Bilirubin 2.90 mg/dL (0.1-1.2) H 07/10/19 13:05 AST 86 units/L (5-40) H 07/10/19 13:05 ALT 34 units/L (7-56) 07/10/19 13:05 Alkaline Phosphatase 92 units/L (35-129) 07/10/19 13:05 Troponin T < 0.010 ng/mL (0.00-0.029) 07/10/19 15:52 NT-Pro-B Natriuret Pep 2312 pg/mL (0-450) H 07/10/19 13:05 Total Protein 6.1 g/dL (6.3-8.2) L 07/10/19 13:05 Albumin 3.2 g/dL (3.9-5) L 07/10/19 13:05 Albumin/Globulin Ratio 1.1 % 07/10/19 13:05 TSH 2.350 mlU/mL (0.270-4.200) 07/10/19 15:52 Free T4 1.36 ng/dL (0.76-1.46) 07/10/19 15:52 Urine Color Straw (Yellow) 07/10/19 18:48 Urine Turbidity Clear (Clear) 07/10/19 18:48 Urine pH 7.0 (5.0-7.0) 07/10/19 18:48 Ur Specific [place] 1.003 (1.003-1.030) 07/10/19 18:48 Urine Protein <15 mg/dl mg/dL (Negative) 07/10/19 18:48 Urine Glucose (UA) Neg mg/dL (Negative) 07/10/19 18:48 Urine Ketones Neg mg/dL (Negative) 07/10/19 18:48 Urine Blood Neg (Negative) 07/10/19 18:48 Urine Nitrite Neg (Negative) 07/10/19 18:48 Urine Bilirubin Neg (Negative) 07/10/19 18:48 Urine Urobilinogen 4.0 mg/dL (<2.0) 07/10/19 18:48 Ur Leukocyte Esterase Neg (Negative) 07/10/19 18:48 Urine WBC (Auto) 8.0 /HPF (0.0-6.0) H 07/10/19 18:48 Urine RBC (Auto) < 1.0 /HPF (0.0-6.0) 07/10/19 18:48 Active Medications - Current Medications Current Medications: Generic Name Dose Route Start Last Admin Trade Name Freq PRN Reason Stop Dose Admin Acetaminophen 650 mg 07/10/19 19:36 07/16/19 12:50 Tylenol PO 650 mg Q4H PRN Administration Pain MILD(1-3)/Fever >100.5/FLANNERY Albuterol 2.5 mg 07/10/19 19:36 Proventil IH Q4HRT PRN Shortness Of Breath Folic Acid 1 mg 07/10/19 19:53 07/16/19 10:20 Folvite PO 1 mg QDAY AAYUSH Administration Furosemide 40 mg 07/11/19 06:00 07/16/19 05:44 Lasix IV 40 mg BID@0600,1800 AAYUSH Administration Heparin Sodium (Porcine) 5,000 unit 07/10/19 22:00 07/16/19 10:21 Heparin SUB-Q 5,000 unit Q12HR AAYUSH Administration Milrinone Lactate/Dextrose 20 mg in 100 mls @ 6.255 mls/hr 07/14/19 14:00 07/16/19 05:44 Milrinone-D5w 20 Mg/100 Ml IV 0.25 mcg/kg/min TITR AAYUSH 6.255 mls/hr Administration 0.25 MCG/KG/MIN Lorazepam 2 mg 07/10/19 19:53 Ativan IV Q1HR PRN CIWA-Ar 8-15 Ondansetron HCl 4 mg 07/10/19 19:36 Zofran IV Q8H PRN Nausea And Vomiting Sodium Chloride 10 ml 07/10/19 22:00 07/16/19 10:20 Sodium Chloride Flush Syringe 10 Ml IV 10 ml BID AAYUSH Administration Sodium Chloride 10 ml 07/10/19 19:36 Sodium Chloride Flush Syringe 10 Ml IV PRN PRN LINE FLUSH Spironolactone 25 mg 07/12/19 10:00 07/16/19 10:23 Aldactone PO 25 mg QDAY AAYUSH Administration
[2019-07-17] MEDS: HEPARIN 5,000 UNIT/1 ML VIAL SUB-Q SCH ×3 (01:07→22:47)
[2019-07-17] MEDS: MILRINONE-D5W 20 MG/100 ML 20 MG/100 ML BAG IV SCH (01:07)
[2019-07-17] MEDS: FUROSEMIDE 40 MG/4 ML INJ IV SCH ×2 (05:33→19:55)
[2019-07-17 07:50] LABS: Hematocrit 45.4 % (35.5-45.6); Mean Corpuscular HGB Conc 35 % (32-34); Mean Corpuscular Volume 99 fl (84-94); Platelet Count 244 K/mm3 (140-440); Red Blood Count 4.59 M/mm3 (3.65-5.03); Red Cell Distribution Width 13.6 % (13.2-15.2)
[2019-07-17 08:06] LABS: BUN/Creatinine Ratio 14; Blood Urea Nitrogen 15 mg/dL (9-20); Calcium 8.9 mg/dL (8.4-10.2); Hemolysis Index 26
[2019-07-17] MEDS: SPIRONOLACTONE 25 MG TAB PO SCH (10:19)
[2019-07-17] MEDS: FOLIC ACID 1 MG TAB PO SCH (10:19)
[2019-07-17] MEDS: ACETAMINOPHEN 325 MG TAB PO PRN (10:25)
--- NOTE | 2019-07-17 10:37 | Progress Note ---
Assessment and Plan Acute systolic heart failure EF 10% by outpatient echocardiogram. low probability for PE via VQ scan. Lifevest placement Alcohol dependence Recommendations: Sodium and fluid restriction. Discontinue IV milrinone therapy. Medical therapy for systolic heart failure to include beta blockers, diuretics, afterload reduction agents and aldactone. Discharge planning in 24 hours. Ischemic evaluation with a stress thallium test will be done as an outpatient. Subjective Date of service: 07/17/19 Interval history: Patient is diuresing well. Lower extremity edema is improving. Patient reports his breathing is better. Objective Vital Signs Temp Pulse Resp BP Pulse Ox 07/17/19 10:25 20 07/17/19 10:19 103/68 07/17/19 09:03 97.9 F 129 H 18 101/62 96 07/17/19 04:04 98.1 F 125 H 18 83/43 94 07/16/19 23:28 98.5 F 129 H 18 103/74 96 07/16/19 22:00 130 H 07/16/19 20:31 98.1 F 118 H 18 102/74 99 07/16/19 15:19 97.5 F L 124 H 18 107/77 98 07/16/19 11:26 98.4 F 18 100/71 - Physical Examination General: No Apparent Distress HEENT: Positive: PERRL Neck: Positive: trachea midline Cardiac: Positive: Tachycardia Lungs: Positive: Decreased Breath Sounds Neuro: Positive: Grossly Intact Abdomen: Positive: Unremarkable, Active Bowel Sounds Extremities: Present: edema, +1 Edema - Labs and Meds CBC 07/17/19 Range/Units 06:55 WBC 5.4 (4.5-11.0) K/mm3 RBC 4.59 (3.65-5.03) M/mm3 Hgb 16.0 H (11.8-15.2) gm/dl Hct 45.4 (35.5-45.6) % Plt Count 244 (140-440) K/mm3 Comprehensive Metabolic Panel 07/17/19 Range/Units 06:55 Sodium 140 (137-145) mmol/L Potassium 4.2 (3.6-5.0) mmol/L Chloride 99.6 (98-107) mmol/L Carbon Dioxide 21 L (22-30) mmol/L BUN 15 (9-20) mg/dL Creatinine 1.1 (0.8-1.5) mg/dL Glucose 102 H (75-100) mg/dL Calcium 8.9 (8.4-10.2) mg/dL
--- NOTE | 2019-07-17 13:56 | Progress Note ---
Assessment and Plan Assessment and plan: Patient is a 39-year-old man with a history of with nicotine dependence and alcohol alcohol who presented to [facility] ED with lower extremity edema and shortness of breath. Patient was seen at his texture artist Dr. Pereyra's office and underwent an echocardiogram which showed an ejection fraction of 10-15%%. Patient was instructed to seek medical care. 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 Gonzales, treat with iv diuretics Nicotine dependence: Smoking cessation counseling, Alcohol dependence: Thiamine, folic acid, multivitamin p.o. daily, supportive care, CIWA protocol. Last drink 2 days prior to arrival Hyponatremia syndrome: Supportive care, monitor urine output every shift, BMP, repeat BMP in a.m. DVT prophylaxis: SCD to bilateral lower extremities while in bed, prophylactic heparin. Disposition: continue inpatient care because patient still volume overload, stop Milirinone per cardiology, Anticipate d.c tomorrow per Cardiology, Lifevest placement prior to discharge. History Interval history: Patient was seen and examined. Follow-up on current diagnosis of CHF. Overnight uneventful as no events directly reported to me. Patient denies any chest pain, shortness breath, nausea/vomiting or severe headaches. Imaging, nursing note, chart, labs and old chart reviewed. Discussed with patient. Hospitalist Physical - Physical exam Narrative exam: Gen: WDWN, NAD, Awake, Alert, Orientated x 3 HEENT: NCAT, EOMI, PERRL, OP Clear Neck: supple, no adenopathy, no thyromegaly, + JVD CVS/Heart: RRR, normal S1S2, pulses present bilaterally Chest/Lungs: diminished bs bilateral, Symmetrical chest expansion, good air entry bilaterally GI/Abdomen: soft, NTND, good bowel sounds, no guarding or rebound /Bladder: no suprapubic tenderness, no CVA or paraspinal tenderness Extermity/Skin: 3+ pitting bilateral leg edema MSK: FROM x 4 Neuro: CN 2-12 grossly intact, no new focal deficits Psych: calm - Constitutional Vitals: Temp Pulse Resp BP Pulse Ox 97.9 F 123 H 20 103/68 96 07/17/19 09:03 07/17/19 10:00 07/17/19 10:25 07/17/19 10:19 07/17/19 10:00 General appearance: Present: no acute distress Results - Labs CBC & Chem 7: 07/17/19 06:55 07/17/19 06:55 Labs: Laboratory Last Values WBC 5.4 K/mm3 (4.5-11.0) 07/17/19 06:55 RBC 4.59 M/mm3 (3.65-5.03) 07/17/19 06:55 Hgb 16.0 gm/dl (11.8-15.2) H 07/17/19 06:55 Hct 45.4 % (35.5-45.6) 07/17/19 06:55 MCV 99 fl (84-94) H 07/17/19 06:55 MCH 35 pg (28-32) H 07/17/19 06:55 MCHC 35 % (32-34) H 07/17/19 06:55 RDW 13.6 % (13.2-15.2) 07/17/19 06:55 Plt Count 244 K/mm3 (140-440) 07/17/19 06:55 Lymph % (Auto) 11.2 % (13.4-35.0) L 07/10/19 13:05 Crisp % (Auto) 11.2 % (0.0-7.3) H 07/10/19 13:05 Eos % (Auto) 0.1 % (0.0-4.3) 07/10/19 13:05 Baso % (Auto) 0.9 % (0.0-1.8) 07/10/19 13:05 Lymph # 0.8 K/mm3 (1.2-5.4) L 07/10/19 13:05 Crisp # 0.8 K/mm3 (0.0-0.8) 07/10/19 13:05 Eos # 0.0 K/mm3 (0.0-0.4) 07/10/19 13:05 Baso # 0.1 K/mm3 (0.0-0.1) 07/10/19 13:05 Seg Neutrophils % 76.6 % (40.0-70.0) H 07/10/19 13:05 Seg Neutrophils # 5.6 K/mm3 (1.8-7.7) 07/10/19 13:05 PT 17.1 Sec. (12.2-14.9) H 07/10/19 13:05 INR 1.37 (0.87-1.13) H 07/10/19 13:05 APTT 34.2 Sec. (24.2-36.6) 07/10/19 13:05 D-Dimer 1283.51 ng/mlDDU (0-234) H 07/10/19 16:45 Sodium 140 mmol/L (137-145) 07/17/19 06:55 Potassium 4.2 mmol/L (3.6-5.0) 07/17/19 06:55 Chloride 99.6 mmol/L (98-107) 07/17/19 06:55 Carbon Dioxide 21 mmol/L (22-30) L 07/17/19 06:55 Anion Gap 24 mmol/L 07/17/19 06:55 BUN 15 mg/dL (9-20) 07/17/19 06:55 Creatinine 1.1 mg/dL (0.8-1.5) 07/17/19 06:55 Estimated GFR > 60 ml/min 07/17/19 06:55 BUN/Creatinine Ratio 14 % 07/17/19 06:55 Glucose 102 mg/dL (75-100) H 07/17/19 06:55 POC Glucose 96 (70-105) 07/16/19 20:38 Calcium 8.9 mg/dL (8.4-10.2) 07/17/19 06:55 Magnesium 1.60 mg/dL (1.7-2.3) L 07/10/19 15:52 Total Bilirubin 2.90 mg/dL (0.1-1.2) H 07/10/19 13:05 AST 86 units/L (5-40) H 07/10/19 13:05 ALT 34 units/L (7-56) 07/10/19 13:05 Alkaline Phosphatase 92 units/L (35-129) 07/10/19 13:05 Troponin T < 0.010 ng/mL (0.00-0.029) 07/10/19 15:52 NT-Pro-B Natriuret Pep 2312 pg/mL (0-450) H 07/10/19 13:05 Total Protein 6.1 g/dL (6.3-8.2) L 07/10/19 13:05 Albumin 3.2 g/dL (3.9-5) L 07/10/19 13:05 Albumin/Globulin Ratio 1.1 % 07/10/19 13:05 TSH 2.350 mlU/mL (0.270-4.200) 07/10/19 15:52 Free T4 1.36 ng/dL (0.76-1.46) 07/10/19 15:52 Urine Color Straw (Yellow) 07/10/19 18:48 Urine Turbidity Clear (Clear) 07/10/19 18:48 Urine pH 7.0 (5.0-7.0) 07/10/19 18:48 Ur Specific [place] 1.003 (1.003-1.030) 07/10/19 18:48 Urine Protein <15 mg/dl mg/dL (Negative) 07/10/19 18:48 Urine Glucose (UA) Neg mg/dL (Negative) 07/10/19 18:48 Urine Ketones Neg mg/dL (Negative) 07/10/19 18:48 Urine Blood Neg (Negative) 07/10/19 18:48 Urine Nitrite Neg (Negative) 07/10/19 18:48 Urine Bilirubin Neg (Negative) 07/10/19 18:48 Urine Urobilinogen 4.0 mg/dL (<2.0) 07/10/19 18:48 Ur Leukocyte Esterase Neg (Negative) 07/10/19 18:48 Urine WBC (Auto) 8.0 /HPF (0.0-6.0) H 07/10/19 18:48 Urine RBC (Auto) < 1.0 /HPF (0.0-6.0) 07/10/19 18:48 Active Medications - Current Medications Current Medications: Generic Name Dose Route Start Last Admin Trade Name Freq PRN Reason Stop Dose Admin Acetaminophen 650 mg 07/10/19 19:36 07/17/19 10:25 Tylenol PO 650 mg Q4H PRN Administration Pain MILD(1-3)/Fever >100.5/FLANNERY Albuterol 2.5 mg 07/10/19 19:36 Proventil IH Q4HRT PRN Shortness Of Breath Carvedilol 3.125 mg 07/17/19 22:00 Coreg PO BID AAYUSH Folic Acid 1 mg 07/10/19 19:53 07/17/19 10:19 Folvite PO 1 mg QDAY AAYUSH Administration Furosemide 40 mg 07/11/19 06:00 07/17/19 05:33 Lasix IV 40 mg BID@0600,1800 AAYUSH Administration Heparin Sodium (Porcine) 5,000 unit 07/10/19 22:00 07/17/19 10:19 Heparin SUB-Q 5,000 unit Q12HR AAYUSH Administration Lisinopril 2.5 mg 07/18/19 10:00 Zestril PO QDAY AAYUSH Lorazepam 2 mg 07/10/19 19:53 Ativan IV Q1HR PRN CIWA-Ar 8-15 Ondansetron HCl 4 mg 07/10/19 19:36 Zofran IV Q8H PRN Nausea And Vomiting Sodium Chloride 10 ml 07/10/19 22:00 07/17/19 05:35 Sodium Chloride Flush Syringe 10 Ml IV 10 ml BID AAYUSH Administration Sodium Chloride 10 ml 07/10/19 19:36 Sodium Chloride Flush Syringe 10 Ml IV PRN PRN LINE FLUSH Spironolactone 25 mg 07/12/19 10:00 07/17/19 10:19 Aldactone PO 25 mg QDAY AAYUSH Administration Nutrition/Malnutrition Assess - Dietary Evaluation Nutrition/Malnutrition Findings: Nutrition Notes Start: 07/17/19 12:57 Freq: Status: Active Protocol: Document 07/17/19 12:57 LM (Rec: 07/17/19 13:02 LM [id number]) Nutrition Notes Need for Assessment generated from: LOS,Education Initial or Follow up Brief Note Current Diagnosis Heart Failure Other Pertinent Diagnosis ETOH and nicotine dependence Current Diet Cardiac diet Pertinent Medications Lasix Weight Status Appropriate Subjective/Other Information Screen for LOS. Pt stated he has a good appetite. Pt stated he only had some wt loss from swelling that resolved. Pt was confused about what he could and cannot eat so provided/discussed heart healthy diet education with pt . #1 Nutrition Diagnosis Food and nutrition-related knowledge deficit Etiology No prior heart healthy diet education As Evidenced by Signs and Symptoms pt with questions about foods he can and cannot eat Nutrition Intervention Teaching Recipient Patient Learning Readiness Good Teaching Methods Discussion,Handout Response to Teaching Verbalize understanding Education Handouts Provided Heart healthy handout Barriers to Learning No Barriers Revisit per MD consult or patient Sign Off request:
[2019-07-17] MEDS: carvediloL 3.125 MG TAB PO SCH (22:47)
[2019-07-18] MEDS: FUROSEMIDE 40 MG/4 ML INJ IV SCH (05:51)
[2019-07-18 06:04] LABS: Hematocrit 45.1 % (35.5-45.6); Hemoglobin 15.9 gm/dl (11.8-15.2); Mean Corpuscular HGB Conc 35 % (32-34); Mean Corpuscular Volume 99 fl (84-94); Platelet Count 268 K/mm3 (140-440); Red Blood Count 4.56 M/mm3 (3.65-5.03); Red Cell Distribution Width 13.6 % (13.2-15.2)
[2019-07-18 06:28] LABS: BUN/Creatinine Ratio 13; Blood Urea Nitrogen 16 mg/dL (9-20); Calcium 9.1 mg/dL (8.4-10.2); Hemolysis Index 6
[2019-07-18] MEDS: FOLIC ACID 1 MG TAB PO SCH (09:40)
[2019-07-18] MEDS: SPIRONOLACTONE 25 MG TAB PO SCH ×2 (09:40→11:00)
[2019-07-18] MEDS: carvediloL 3.125 MG TAB PO SCH (09:41)
[2019-07-18] MEDS: HEPARIN 5,000 UNIT/1 ML VIAL SUB-Q SCH (09:41)
[2019-07-18] MEDS ORDERED: LISINOPRIL 5 MG TAB PO SCH (10:00)
[2019-07-18 10:08] VITALS: BP 102/77
--- NOTE | 2019-07-18 11:19 | Progress Note ---
Assessment and Plan Acute systolic heart failure EF 10% by outpatient echocardiogram. low probability for PE via VQ scan. Lifevest placement Ischemic evaluation with a stress thallium test will be done as an outpatient. Alcohol dependence Recommendations: Sodium and fluid restriction. Continue medical therapy for systolic heart failure. Management of anxiety and alcohol withdrawal as per hospitalist. Subjective Date of service: 07/18/19 Interval history: Appears anxious. Patient reports shortness of breath that woke him from sleep this morning. Currently denies shortness of breath. He has no chest pain. Admits he is diuresing well. Objective Vital Signs Temp Pulse Pulse Resp Resp BP Pulse Ox 07/18/19 09:38 119 H 18 07/18/19 07:33 98.3 F 18 102/77 07/18/19 04:17 97.7 F 123 H 20 102/75 98 07/18/19 00:06 98.0 F 125 H 20 98/73 97 07/17/19 22:00 113 H 07/17/19 20:08 97.5 F L 131 H 20 90/70 98 07/17/19 17:36 132 H 18 119/75 100 07/17/19 12:51 125 H 18 110/72 99 - Physical Examination General: No Apparent Distress HEENT: Positive: PERRL Neck: Positive: trachea midline Cardiac: Positive: Tachycardia Lungs: Positive: Decreased Breath Sounds Neuro: Positive: Grossly Intact Abdomen: Positive: Active Bowel Sounds Extremities: Present: +1 Edema - Labs and Meds CBC 07/18/19 Range/Units 05:35 WBC 5.1 (4.5-11.0) K/mm3 RBC 4.56 (3.65-5.03) M/mm3 Hgb 15.9 H (11.8-15.2) gm/dl Hct 45.1 (35.5-45.6) % Plt Count 268 (140-440) K/mm3 Comprehensive Metabolic Panel 07/18/19 Range/Units 05:35 Sodium 136 L (137-145) mmol/L Potassium 4.2 (3.6-5.0) mmol/L Chloride 95.9 L (98-107) mmol/L Carbon Dioxide 26 (22-30) mmol/L BUN 16 (9-20) mg/dL Creatinine 1.2 (0.8-1.5) mg/dL Glucose 134 H (75-100) mg/dL Calcium 9.1 (8.4-10.2) mg/dL
[2019-07-18] MEDS ORDERED: ASPIRIN EC 81 MG TAB PO SCH (12:00)
--- NOTE | 2019-07-18 12:08 | Discharge Summary ---
Providers - Providers Date of Admission: 07/10/19 19:36 Attending physician: RODRIGUE COOK MD Primary care physician: AIRAM PEREYRA MD Hospitalization Condition: Fair Hospital course: Patient is a 39-year-old man with a history of with nicotine dependence and alcohol alcohol who presented to [facility] ED with lower extremity edema and shortness of breath. Patient was seen at his director automotive Dr. Pereyra's office and underwent an echocardiogram which showed an ejection fraction of 10-15%%. Patient was instructed to seek medical care. 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 daily, supportive care, CIWA protocol. Last drink 2 days prior to arrival Hyponatremia syndrome: Supportive care, monitor urine output every shift, BMP, repeat BMP in a.m. DVT prophylaxis: SCD to bilateral lower extremities while in bed, prophylactic heparin. Disposition: LifeVest was provided to patient. His fluid status improved, he was noted to have anxiety for which she was counseled and given outpatient resources and benzodiazepines. The patient was discharged in improved condition Nonadherence; preventative health counseling performed for 17 minutes Disposition: DC-01 TO HOME OR SELFCARE Time spent for discharge: 33 mins Core Measure Documentation - Palliative Care Palliative Care/ Comfort Measures: Not Applicable - Core Measures Any of the following diagnoses?: heart failure - Heart Failure Discharge Requirements HARLEEN/ARB for LVSD if EF <40%: Yes Beta to at discharge: Yes Exam - Constitutional Vitals: Temp Pulse Resp BP Pulse Ox 98.3 F 123 H 18 102/77 98 07/18/19 07:33 07/18/19 10:00 07/18/19 09:38 07/18/19 07:33 07/18/19 04:17 General appearance: Present: no acute distress, well-nourished - EENT Eyes: Present: PERRL ENT: hearing intact, clear oral mucosa - Neck Neck: Present: supple, normal ROM - Respiratory Respiratory effort: normal Respiratory: bilateral: CTA - Cardiovascular Heart Sounds: Present: S1 & S2. Absent: rub, click - Extremities Extremities: pulses symmetrical, No edema Peripheral Pulses: within normal limits - Abdominal General gastrointestinal: Present: soft, non-tender, non-distended, normal bowel sounds Male genitourinary: Present: normal - Integumentary Integumentary: Present: clear, warm, dry - Musculoskeletal Musculoskeletal: gait normal, strength equal bilaterally - Psychiatric Psychiatric: appropriate mood/affect, intact judgment & insight - Neurologic Neurologic: CNII-XII intact, moves all extremities Plan Follow up with: AIRAM PEREYRA MD [Primary Care Provider] - 7 Days Prescriptions: Spironolactone [Aldactone] 25 mg PO QDAY #30 tablet LORazepam [Ativan] 1 mg PO TID PRN #14 tablet PRN Reason: Anxiety Ipratropium (Nf) [Atrovent HFA 17MCG/PUFF] 2 puff IH Q6HR PRN #1 inha PRN Reason: Shortness Of Breath carvediloL [Coreg] 3.125 mg PO BID #60 tablet Folic Acid [Folvite] 1 mg PO QDAY #30 tablet Aspirin EC [Halfprin EC] 81 mg PO QDAY #90 tablet Furosemide [Lasix TAB] 60 mg PO QDAY #90 tablet lisinopriL [Zestril TAB] 2.5 mg PO QDAY #45 tablet
[2019-07-18] MEDS ORDERED: FUROSEMIDE 20 MG TAB PO SCH (14:00)
== END 2019-07-18 17:17 | disposition home or self-care (01) | DRG 292 ==
LOC: ED 12:05 → 4A 19:36
PROVIDERS: ADMIT Internal Medicine; ATTEND Internal Medicine
PROC: 3E0234Z Introduction of Serum, Toxoid and Vaccine into Muscle, Percutaneous Approach (ICD-10-PCS; principal; 2019-07-14)
DX: I50.43 Acute on chronic combined systolic (congestive) and diastolic (congestive) heart failure (principal); I42.6 Alcoholic cardiomyopathy; E87.1 Hypo-osmolality and hyponatremia; F17.213 Nicotine dependence, cigarettes, with withdrawal; F10.20 Alcohol dependence, uncomplicated; I44.0 Atrioventricular block, first degree; Z23 Encounter for immunization; Z71.6 Tobacco abuse counseling; Z82.49 Family history of ischemic heart disease and other diseases of the circulatory system; Z83.3 Family history of diabetes mellitus
CPT/HCPCS: 36415; 71046; 78582; 80048; 80053; 81001; 82962; 83735; 83880; 84439; 84443; 84484; 85025; 85027; 85379; 85610; 85730; 90686; 90732; 93005; 93010; 94640; 96374; 99406; G0378; A9540; A9558; J1644; J1940; J2060; J2260